=== PATIENT | female | born 1975 | race Caucasian/White ===

== ENCOUNTER 2025-01-27 19:38 | Inpatient (IN) ==
[2025-01-27] MEDS: LORazepam 1 MG TAB PO STA (20:20)
[2025-01-27 21:21] LABS: Alanine Aminotransferase 16 U/L (7-52); Albumin Globulin Ratio 1.0 (0.9-2); Alkaline Phosphatase 88 U/L (34-104); Anion Gap 8 (3-11); Bilirubin,Total 0.3 mg/dl (0.2-1.0); Blood Urea Nitrogen 12 mg/dl (6-23); Calcium 9.3 mg/dl (8.6-10.3); Carbon Dioxide 27 mmol/L (21-32); Chloride 87 mmol/L (98-107); Globulin 3.6 gm/dl (2.5-4.0); Glucose 134 mg/dl (70-99(Fasting)); Potassium 4.1 mmol/L (3.5-5.1); Sodium 122 mmol/L (136-145); Total Protein 7.3 gm/dl (6.0-8.3)
[2025-01-27 21:36] LABS: Thyroid Stimulating Hormone 3.576 uIu/ml (0.300-4.500)
[2025-01-27 21:37] LABS: Acetaminophen < 3 ug/ml (10-30); Salicylate < 3.0 mg/dl (3.0-30)
[2025-01-27 21:38] LABS: Hematocrit (blood only) 27.6 % (37.0-47.0); Hemoglobin 9.7 g/dl (12.0-16.0); Immature Granulocytes # (auto) 0.05 K/uL (0.01-0.20); Immature Granulocytes % (auto) 0.6 %; Mean Corpuscular Hemoglobin 29.1 pg (25.0-34.0); Mean Corpuscular Volume 82.9 fL (80.0-100.0); Platelet Count 645 K/uL (130-400); RDW Standard Deviation 40.4 fL (36.4-46.3); Red Blood Count 3.33 M/uL (4.20-5.40); White Blood Count 8.48 K/ul (4.8-10.8)
--- NOTE | 2025-01-27 21:55 | Emergency Department Note ---
Impression & Plan Acute hyponatremia, UTI (urinary tract infection), Acute psychosis ED Provider Note NAME: ANSHU HARPER AGE: 50 SEX: F : 1975 ARRIVES VIA: Ambulance INFORMANT: Patient, EMS, [facility] staff ED PROVIDER(S): Oleg Gaming DO CHIEF COMPLAINT: psychiatric evaluation HPI: This is a 50-year-old female with the PMHx of alcohol use disorder and psychiatric illness presenting to [facility] for further evaluation of psychiatric evaluation. Patient is accompanied by EMS who provide additional history. EMS states the patient has been delusional and paranoid. She has been screaming and crying. She has been cooperative. [facility] of staff provides further history. They report that the patient has been present in their facility for approximately 1 month. They report that she is going under alcohol rehabilitation services. She is from [place]. They note that her children are not or have been involved in motor vehicle accidents. She states that this has been worsening over the past week or so. They report this is not herself. They report significant paranoia, delusions and evidence of psychosis. They also did note some homicidal and suicidal statements. Patient is actively psychotic and further review of systems or history is difficult to obtain. She does note multiple times that her children are . She does state that she wants to . She has made numerous suicidal and homicidal statements to myself as well as nursing staff on arrival to the emergency department. ADDITIONAL HISTORY OBTAINED: Per HPI Chronic Medical/Social Conditions Affecting Care: Per HPI PAST MEDICAL HISTORY: See Below PAST SURGICAL HISTORY: See Below FAMILY HISTORY: See Below SOCIAL HISTORY: See Below HOME MEDICATIONS: See Below ALLERGIES: See Below VITALS: See Below PHYSICAL EXAMINATION: GENERAL: Alert, well developed, well nourished, no acute distress HEAD: Normocephalic, atraumatic EYES: EOM's intact, sclera anicteric, conjunctiva clear OROPHARYNX: Airway patent and mucous membranes dry LUNGS: No respiratory distress, normal respiratory rate and effort HEART: Well perfused, regular rate ABDOMEN: Abdomen non-distended SKIN: Normal color, dry EXTREMITIES: No gross deformities, no edema NEURO: Alert, oriented x3, appropriate for age, moves all four extremities, normal speech PSYCH: crying and screaming, pressured speech, flight of ideas, evidence of psychosis MEDICAL DECISION MAKING: Differential diagnoses includes but not limited to PTSD, depression, anxiety, bipolar disorder, acute psychosis, intracranial mass, vasogenic edema, electrolyte derangements, dehydration, infectious pathology, polysubstance use disorder, alcohol use disorder, polypharmacy, valproic acid toxicity In summary, this is a 50 year old female who presented with psychosis. Differential as above. Nursing notes and pertinent past medical records reviewed. Vital signs reviewed and the patient is hypertensive but otherwise afebrile and hemodynamically stable. History and presentation revealed unclear history as the patient is unknown to our medical system. Patient is from [place]. Currently undergoing rehabilitation services for alcohol use disorder. She is on multiple psychiatric medications including valproic acid. It appears the patient was recently at [facility] and ultimately discharged as she was combative and psychotic. She was found to be hyponatremic at that visit. Physical examination revealed patient is in acute psychosis. As a result of my initial evaluation, plan for psychiatric screening labs as well as Ativan while awaiting 302 petitioner to arrive in the emergency department. Plan for mental health evaluation. Diagnostics interpreted by me include cardiac monitoring as listed below: -Cardiac Monitoring: An order was placed for continuous cardiac monitoring. The monitor shows a rate of 70-90s with regular rhythm. Patient completed laboratory studies and imaging. Results independently interpreted by me are mild anemia and thrombocytosis. Acute hyponatremia with hypochloridemia present. Patient's osmolality is low as well. She does appear to have a possible UTI on urinalysis. TSH is normal. Patient has hypotonic hypoosmotic hyponatremia. Plan for further evaluation as an inpatient as the patient will not be able to be medically cleared. I did add on psychiatric screening labs which showed a negative urine toxicology as well as an ethanol. Patient had valproic acid levels drawn as well as some ammonia. The patient was managed with []. The patient was originally here on a 302 petition from her living facility. She is currently in rehabilitation services at [facility]. Patient has been acting delusional and significant paranoia. She is having hallucinations. She thinks her children are . She does have acute hyponatremia. Patient's sodium will need medical clearance and she will require admission. I did review the patient's medication list with only concerning for maybe valproic acid. A level was added to the patient's labs as well as an ammonia. Will obtain a CT head for further clearance. Hyponatremia labs added to the workup. Patient will need admitted by the hospitalist service prior to psychiatric admission. CTH independently interpreted by me reveals no evidence of ICH. No significant hydrocephalus. No major skull fractures. CTH does not demonstrate findings to suggest an etiology of the patient's symptoms or presentation, today. Ultimately, the decision was made to admit the patient for acute psychosis in the setting of hypotonic hypoosmotic hyponatremia. I discussed the case with the hospitalist service via telephone/TigerText and they are agreeable to admit the patient to their services. Based on the above, including the patient's age, coexisting illnesses, labs, imaging, and exam findings the decision to treat as an inpatient. I discussed the patient with the hospitalist team who recommended admission to their services. They received the medications, treatments, interventions indicated above and their condition remained guarded. I discussed my findings with the patient and their family and they understand and agree with the treatment plan. All patient / family questions were answered to their satisfaction. Consults/Care Managements Discussions: Per [facility] treatment provided: See above Procedures:none Critical Care: None The chart was completed utilizing [employer] Speech voice recognition software. Grammatical errors, random word insertions, pronoun errors, and incomplete sentences are an occasional consequence of this system due to software limitations, ambient noise, and hardware issues. Any formal questions or concerns about the content, text, or information contained within the body of this dictation should be directly addressed to the physician for clarification. Past Med/Surg History Problem List (Updated 01/28/25 @ 14:05 by Oleg Gaming DO) Acute psychosis (Acute) Acute hyponatremia (Acute) SIADH (syndrome of inappropriate ADH production) UTI (urinary tract infection) (Acute) Psychoses Hyponatremia Medical History (Updated 01/28/25 @ 14:05 by Oleg Gaming DO) History of alcohol abuse GERD (gastroesophageal reflux disease) Hypertension Asthma with COPD PTSD (post-traumatic stress disorder) Surgical History (Updated 01/28/25 @ 00:30 by Munira Hughes DO) History of left knee surgery Social History Smoking Status: Unknown if ever smoked Tobacco Type: Cigarettes Hx Alcohol Use: Yes Hx Substance Use: Yes Last Used Substance: Unknown Preferred Language: [place]orese Exercise Equipment Specialist Required: No Beliefs That Will Affect Care: None Feels Safe at Home: Yes Allergies Allergies Allergy/AdvReac Type Severity Reaction Status Date / Time No Known Allergies Allergy Unverified 01/28/25 00:48 Home Meds Home Medications Medication Instructions Recorded Confirmed budesonide 160 mcg-glycopyr 9 2 inh inhalation BID 01/27/25 01/27/25 mcg-formot 4.8 mcg/actuation HFA inhaler (Breztri Aerosphere) diclofenac sodium 1 % topical gel 2 g topical QID 01/27/25 01/27/25 divalproex 250 mg tablet,extended 250 mg PO BID 01/27/25 01/27/25 release 24 hr divalproex 500 mg tablet,extended 500 mg PO HS 01/27/25 01/27/25 release 24 hr ferrous sulfate 325 mg (65 mg 325 mg PO DAILY 01/27/25 01/27/25 iron) tablet (FeroSul) gabapentin 400 mg capsule 400 mg PO BID 01/27/25 01/27/25 gabapentin 600 mg tablet 600 mg PO HS 01/27/25 01/27/25 hydroxyzine HCl 50 mg tablet 50 mg PO TID 01/27/25 01/27/25 lidocaine 4 % topical patch 1 patch topical DAILY PRN Pain 01/27/25 01/27/25 losartan 25 mg tablet 25 mg PO DAILY 01/27/25 01/27/25 omeprazole 40 mg capsule,delayed 40 mg PO BID 01/27/25 01/27/25 release prazosin 1 mg capsule 1 mg PO BID 01/27/25 01/27/25 prazosin 5 mg capsule 5 mg PO HS 01/27/25 01/27/25 quetiapine 300 mg tablet (Seroquel) 150 mg PO HS 01/27/25 01/27/25 risperidone 2 mg tablet (Risperdal) 2 mg PO DAILY 01/27/25 01/27/25 sucralfate 1 gram tablet 1 g PO HS 01/27/25 01/27/25 Results & Data (ED) Vital Signs Vital Signs - 24 hr 01/27/25 19:46 01/27/25 21:06 01/27/25 22:23 Temperature 36.6 C 36.6 C Temperature Source Oral Oral Pulse Rate 78 Pulse Rate [Left Finger] 90 Pulse Rate from SpO2 Sensor Respiratory Rate 20 Respiratory Effort / Characteristics Non-Labored Spontaneous Respiratory Depth Normal Respiratory Pattern Regular Blood Pressure Blood Pressure [Left Arm] 180/92 H Blood Pressure Mean Blood Pressure Mean [Left Arm] 121 Pulse Oximetry 95 Oxygen Delivery Method Room Air Sepsis Recent Fever Within 48 Hours No Sepsis New/Unexplained Change in Mental Status No Sepsis Action Taken by Nursing No Action Required 01/27/25 22:26 01/27/25 22:54 01/27/25 23:00 Temperature 36.6 C Temperature Source Oral Pulse Rate 77 79 Pulse Rate [Left Finger] 73 Pulse Rate from SpO2 Sensor 76 79 Respiratory Rate 14 12 18 Respiratory Effort / Characteristics Non-Labored Spontaneous Respiratory Depth Normal Respiratory Pattern Regular Blood Pressure Blood Pressure [Left Arm] 197/131 H Blood Pressure Mean Blood Pressure Mean [Left Arm] 153 Pulse Oximetry 100 98 197 H Oxygen Delivery Method Room Air Sepsis Recent Fever Within 48 Hours Sepsis New/Unexplained Change in Mental Status Sepsis Action Taken by Nursing 01/27/25 23:00 01/27/25 23:00 01/27/25 23:00 Temperature Temperature Source Pulse Rate Pulse Rate [Left Finger] Pulse Rate from SpO2 Sensor Respiratory Rate Respiratory Effort / Characteristics Respiratory Depth Respiratory Pattern Blood Pressure 197/131 H 197/131 H 197/131 H Blood Pressure [Left Arm] Blood Pressure Mean 159 159 159 Blood Pressure Mean [Left Arm] Pulse Oximetry Oxygen Delivery Method Sepsis Recent Fever Within 48 Hours Sepsis New/Unexplained Change in Mental Status Sepsis Action Taken by Nursing 01/27/25 23:00 01/27/25 23:03 01/27/25 23:24 Temperature Temperature Source Pulse Rate 76 71 Pulse Rate [Left Finger] Pulse Rate from SpO2 Sensor 77 71 Respiratory Rate 16 18 Respiratory Effort / Characteristics Respiratory Depth Respiratory Pattern Blood Pressure 197/131 H Blood Pressure [Left Arm] Blood Pressure Mean 159 Blood Pressure Mean [Left Arm] Pulse Oximetry 97 95 Oxygen Delivery Method Sepsis Recent Fever Within 48 Hours Sepsis New/Unexplained Change in Mental Status Sepsis Action Taken by Nursing 01/27/25 23:36 01/27/25 23:51 Temperature Temperature Source Pulse Rate 72 75 Pulse Rate [Left Finger] Pulse Rate from SpO2 Sensor 72 76 Respiratory Rate 15 16 Respiratory Effort / Characteristics Respiratory Depth Respiratory Pattern Blood Pressure Blood Pressure [Left Arm] Blood Pressure Mean Blood Pressure Mean [Left Arm] Pulse Oximetry 96 98 Oxygen Delivery Method Sepsis Recent Fever Within 48 Hours Sepsis New/Unexplained Change in Mental Status Sepsis Action Taken by Nursing Laboratory Data 01/28/25 04:27 01/28/25 12:23 Lab Results 01/27/25 01/27/25 01/27/25 Range/Units 20:11 20:49 20:54 WBC 8.48 (4.8-10.8) K/ul RBC 3.33 L (4.20-5.40) M/uL Hgb 9.7 L (12.0-16.0) g/dl Hct 27.6 L (37.0-47.0) % MCV 82.9 (80.0-100.0) fL MCH 29.1 (25.0-34.0) pg MCHC 35.1 (32.0-36.0) g/dL RDW Std Deviation 40.4 (36.4-46.3) fL RDW Coeff of [place] 13.3 (11.5-14.5) % Plt Count 645 H (130-400) K/uL MPV 8.9 L (9.4-12.4) fL Immature Gran % (Auto) 0.6 % Neut % (Auto) 59.4 % Lymph % (Auto) 25.2 % [place] % (Auto) 8.8 % Eos % (Auto) 4.6 % Baso % (Auto) 1.4 % Neut # (Auto) 5.03 (1.40-6.50) K/uL Lymph # (Auto) 2.14 (1.20-3.40) K/uL [place] # (Auto) 0.75 H (0.11-0.59) K/uL Eos # (Auto) 0.39 (0.00-0.50) K/uL Baso # (Auto) 0.12 (0.00-0.20) K/uL Immature Gran # (Auto) 0.05 (0.01-0.20) K/uL Sodium 122 L (136-145) mmol/L Potassium 4.1 (3.5-5.1) mmol/L Chloride 87 L (98-107) mmol/L Carbon Dioxide 27 (21-32) mmol/L Anion Gap 8 (3-11) BUN 12 (6-23) mg/dl Creatinine 0.69 (0.6-1.2) mg/dl Est Cr Clr Drug Dosing Not Reportable eGFR 106.99 BUN/Creatinine Ratio 17.4 (10-20) Glucose 134 H (70-99(Fasting)) mg/dl Osmolality 259 L (280-300) mOsm/kg Calcium 9.3 (8.6-10.3) mg/dl Total Bilirubin 0.3 (0.2-1.0) mg/dl AST 17 (13-39) U/L ALT 16 (7-52) U/L Alkaline Phosphatase 88 (34-104) U/L Total Protein 7.3 (6.0-8.3) gm/dl Albumin 3.7 (3.4-5.0) gm/dl Globulin 3.6 (2.5-4.0) gm/dl Albumin/Globulin Ratio 1.0 (0.9-2) TSH 3.576 (0.300-4.500) uIu/ml Urine Color Urine Appearance (Clear) Urine pH (4.5-7.5) Ur Specific [place] (1.000-1.030) Urine Protein (Negative) Urine Glucose (UA) (Negative) Urine Ketones (Negative) Urine Blood (Negative) Urine Nitrite (Negative) Urine Bilirubin (Negative) Urine Urobilinogen (Negative) Ur Leukocyte Esterase (Negative) Urine WBC (Auto) (0-5) /hpf Urine RBC (Auto) (0-2) /hpf U Hyaline Cast (Auto) (0-2) /lpf U Epithel Cells (Auto) (0-2) /hpf Urine Bacteria (Auto) (None Seen) Urine Osmolality (500-800) mOsm/kg Ur Random Sodium mmol/L Urine Comment Salicylates < 3.0 L (3.0-30) mg/dl Urine Opiates Screen (Neg) Ur Methadone, Qual (Neg) Urine Fentanyl Screen (Neg) Acetaminophen < 3 L (10-30) ug/ml Urine Barbiturates (Neg) Ur Phencyclidine (PCP) (Neg) U Amphetamin/Meth Scrn (Neg) MDMA (Ecstasy) Screen (Neg) U Benzodiazepines Scrn (Neg) Ur Cocaine Metabolite (Neg) U Marijuana (THC) Screen (Neg) Ethyl Alcohol mg/dL < 10.0 (<10.0) mg/dl SARS-CoV-2, RNA, NAAT NEGATIVE (NEGATIVE) 01/27/25 Range/Units 22:50 WBC (4.8-10.8) K/ul RBC (4.20-5.40) M/uL Hgb (12.0-16.0) g/dl Hct (37.0-47.0) % MCV (80.0-100.0) fL MCH (25.0-34.0) pg MCHC (32.0-36.0) g/dL RDW Std Deviation (36.4-46.3) fL RDW Coeff of [place] (11.5-14.5) % Plt Count (130-400) K/uL MPV (9.4-12.4) fL Immature Gran % (Auto) % Neut % (Auto) % Lymph % (Auto) % [place] % (Auto) % Eos % (Auto) % Baso % (Auto) % Neut # (Auto) (1.40-6.50) K/uL Lymph # (Auto) (1.20-3.40) K/uL [place] # (Auto) (0.11-0.59) K/uL Eos # (Auto) (0.00-0.50) K/uL Baso # (Auto) (0.00-0.20) K/uL Immature Gran # (Auto) (0.01-0.20) K/uL Sodium (136-145) mmol/L Potassium (3.5-5.1) mmol/L Chloride (98-107) mmol/L Carbon Dioxide (21-32) mmol/L Anion Gap (3-11) BUN (6-23) mg/dl Creatinine (0.6-1.2) mg/dl Est Cr Clr Drug Dosing eGFR BUN/Creatinine Ratio (10-20) Glucose (70-99(Fasting)) mg/dl Osmolality (280-300) mOsm/kg Calcium (8.6-10.3) mg/dl Total Bilirubin (0.2-1.0) mg/dl AST (13-39) U/L ALT (7-52) U/L Alkaline Phosphatase (34-104) U/L Total Protein (6.0-8.3) gm/dl Albumin (3.4-5.0) gm/dl Globulin (2.5-4.0) gm/dl Albumin/Globulin Ratio (0.9-2) TSH (0.300-4.500) uIu/ml Urine Color Yellow Urine Appearance Cloudy A (Clear) Urine pH 7.0 (4.5-7.5) Ur Specific [place] 1.014 (1.000-1.030) Urine Protein Negative (Negative) Urine Glucose (UA) Negative (Negative) Urine Ketones Negative (Negative) Urine Blood Negative (Negative) Urine Nitrite Positive A (Negative) Urine Bilirubin Negative (Negative) Urine Urobilinogen Negative (Negative) Ur Leukocyte Esterase 2+ H (Negative) Urine WBC (Auto) 21-50 H (0-5) /hpf Urine RBC (Auto) 0-2 (0-2) /hpf U Hyaline Cast (Auto) 0-2 (0-2) /lpf U Epithel Cells (Auto) 3-5 H (0-2) /hpf Urine Bacteria (Auto) 4+ H (None Seen) Urine Osmolality 382 L (500-800) mOsm/kg Ur Random Sodium 72 mmol/L Urine Comment Salicylates (3.0-30) mg/dl Urine Opiates Screen Neg (Neg) Ur Methadone, Qual Neg (Neg) Urine Fentanyl Screen Neg (Neg) Acetaminophen (10-30) ug/ml Urine Barbiturates Neg (Neg) Ur Phencyclidine (PCP) Neg (Neg) U Amphetamin/Meth Scrn Neg (Neg) MDMA (Ecstasy) Screen Neg (Neg) U Benzodiazepines Scrn Neg (Neg) Ur Cocaine Metabolite Neg (Neg) U Marijuana (THC) Screen Neg (Neg) Ethyl Alcohol mg/dL (<10.0) mg/dl SARS-CoV-2, RNA, NAAT (NEGATIVE) Administered Medications Diclofenac Sodium (Diclofenac Sod 1% Gel 100 Gm Tube) 2 gm EXT QID MANJIT; Protocol Stop: 02/27/25 08:59 Last Admin: 01/28/25 10:22 Dose: Not Given Documented By: campbell Divalproex Sodium (Divalproex Extended Release 250 Mg Tabcr) 250 mg PO BID [facility] Stop: 02/27/25 08:59 Last Admin: 01/28/25 09:19 Dose: 250 mg Documented By: campbell Fluticasone Furoate (For Breztri~Fluticasone Furoate 200mcg 14 Puffs/Inhaler) 1 puffs INH DAILY [facility] Stop: 02/27/25 08:59 Last Admin: 01/28/25 09:20 Dose: 1 puffs Documented By: campbell Gabapentin (Gabapentin 400 Mg Cap) 400 mg PO BID@0900,1400 [facility] Stop: 02/27/25 08:59 Last Admin: 01/28/25 09:19 Dose: 400 mg Documented By: campbell Hydroxyzine HCl (Hydroxyzine Hcl 25 Mg Tab) 50 mg PO TID MANJIT Stop: 02/27/25 08:59 Last Admin: 01/28/25 09:18 Dose: 50 mg Documented By: campbell Ceftriaxone Sodium (Rocephin) 2,000 mg in 50 mls @ 100 mls/hr IV Q24H MANJIT Stop: 02/02/25 08:59 Last Infusion: 01/28/25 09:28 Dose: Infused Documented By: campbell Admin: 01/28/25 08:45 Dose: 100 mls/hr Documented By: campbell Losartan Potassium (Losartan Potassium 25 Mg Tab) 25 mg PO DAILY [facility]JIT Stop: 02/27/25 08:59 Last Admin: 01/28/25 09:18 Dose: 25 mg Documented By: campbell Pantoprazole Sodium (Pantoprazole 40 Mg Tab) 40 mg PO BID [facility]JIT Stop: 02/27/25 08:59 Last Admin: 01/28/25 09:18 Dose: 40 mg Documented By: campbell Prazosin HCl (Prazosin Hcl 1 Mg Cap) 1 mg PO BID@0900,1400 [facility] Stop: 02/27/25 08:59 Last Admin: 01/28/25 09:19 Dose: 1 mg Documented By: campbell Risperidone (Risperidone 2 Mg Tablet) 2 mg PO DAILY [facility] Stop: 02/27/25 08:59 Last Admin: 01/28/25 09:19 Dose: 2 mg Documented By: campbell Umeclidinium/Vilanterol (For Breztri~Umeclidinium/Vilanterol 62.5/25mcg 7 Puffs/Inhaler) 1 puffs INH DAILY [facility] Stop: 02/27/25 08:59 Last Admin: 01/28/25 09:20 Dose: 1 puffs Documented By: campbell Discontinued Medications Sodium Chloride (Nss) 500 mls @ 999 mls/hr IV .Q31M ONE Stop: 01/27/25 22:26 Last Infusion: 01/27/25 23:07 Dose: Infused Documented By: Admin: 01/27/25 22:30 Dose: 999 mls/hr Documented By: EVA Lorazepam (Lorazepam 1 Mg Tab) 2 mg PO NOW STA Stop: 01/27/25 20:12 Last Admin: 01/27/25 20:20 Dose: 2 mg Documented By: EVA Lorazepam (Lorazepam 1 Mg Tab) 2 mg PO NOW STA Stop: 01/28/25 03:30 Last Admin: 01/28/25 04:11 Dose: 2 mg Documented By: CASPER Discharge Plan Visit Data Chief Complaint: Mental Health Evaluation Stated Complaint: MENTAL HEALTH, HALLUCINATIONS ED Provider: Oleg Gaming Discharge Problem: Acute hyponatremia, UTI (urinary tract infection), Acute psychosis Patient Disposition: Admitted As Inpatient Condition: Serious Discharge Instructions Interventions: ED Discharge Assessment Last Done: 01/28/25 00:45
[2025-01-27] MEDS: SODIUM CHLORIDE 0.9% 500 ML IV ONE (22:30)
[2025-01-27 23:13] LABS: Appearance Urine Cloudy (Clear); Bacteria Urine Automated 4+ (None Seen); Cast Urine Automated 0-2 /lpf (0-2); Glucose Urine UA Negative (Negative); RBC Urine Automated 0-2 /hpf (0-2); WBC Urine Automated 21-50 /hpf (0-5)
[2025-01-27 23:34] LABS: Amphetamines+Metham, Urine Neg (Neg); MDMA (Ecstacy), Urine Neg (Neg); Marijuana, Urine Neg (Neg)
--- NOTE | 2025-01-27 23:35 | History & Physical Report ---
Date of Service January 27, 2025 Assessment & Plan (1) Hyponatremia: (2) Psychoses: Plan 50yo female presenting from [facility] with report of agitated behavior, responding to internal stimuli, paranoia and homicidal statements. #Hyponatremia - Be=639. Possibly contributing to patient's confusion -Admit to medical -Monitor Na q 8 hours -Free water restriction #Agitation/Psychosis/Paranoia/Homicidal Statements -Maintain 1:1 observation -Suicide precautions -Continue home medications -Continue Divalproex, level pending -Continue Gabapentin -Continue Hydroxyzine -Continue Prazosin -Continue Seroquel -Continue Risperdal -Psychiatry consultation appreciated. Uncertain which of these medications are new and if they can be contributing to her hyponatremia Patient was made aware of the Psychiatry consultation, however, was drowsy at the time of the conversation #GERD -Continue Omeprazole and Sucralfate #Hypertension - markedly elevated blood pressures -Continue Losartan -Clonidine 0.1mg po q 6 hours as needed for blood pressure > 180/110 History of Present Illness Chief Complaint: 302 admission Hyponatremia Primary Care Provider: Bry Mendoza is a 50yo female presenting from [facility] as a 302 admission. Patient was recently given Ativan and is somnolent during exam. Is able to answer questions but does not engage fully with providing history or exam. Patient has been at [facility] for the last month for treatment of alcohol use disorder. She was to be discharged today from [facility]. Patient was making comments to [facility] staff that "she was going to kill everyone and rip their heads off". She was noted to have auditory and visual hallucinations. She thinks that her son was attacked in the [place] earlier and is now either or is in the hospital. During my encounter patient with no complaints except a mild headache. In the ER she was initially agitated on arrival but calmed down after PO Ativan ER Course: Ativan 2mg PO NSS x 500mL Home Medications Medication Instructions Recorded Confirmed Type budesonide 160 mcg-glycopyr 9 2 inh inhalation BID 01/27/25 01/27/25 History mcg-formot 4.8 mcg/actuation HFA inhaler (Breztri Aerosphere) diclofenac sodium 1 % topical gel 2 g topical QID 01/27/25 01/27/25 History divalproex 250 mg tablet,extended 250 mg PO BID 01/27/25 01/27/25 History release 24 hr divalproex 500 mg tablet,extended 500 mg PO HS 01/27/25 01/27/25 History release 24 hr ferrous sulfate 325 mg (65 mg 325 mg PO DAILY 01/27/25 01/27/25 History iron) tablet (FeroSul) gabapentin 400 mg capsule 400 mg PO BID 01/27/25 01/27/25 History gabapentin 600 mg tablet 600 mg PO HS 01/27/25 01/27/25 History hydroxyzine HCl 50 mg tablet 50 mg PO TID 01/27/25 01/27/25 History lidocaine 4 % topical patch 1 patch topical DAILY PRN Pain 01/27/25 01/27/25 History losartan 25 mg tablet 25 mg PO DAILY 01/27/25 01/27/25 History omeprazole 40 mg capsule,delayed 40 mg PO BID 01/27/25 01/27/25 History release prazosin 1 mg capsule 1 mg PO BID 01/27/25 01/27/25 History prazosin 5 mg capsule 5 mg PO HS 01/27/25 01/27/25 History quetiapine 300 mg tablet (Seroquel) 150 mg PO HS 01/27/25 01/27/25 History risperidone 2 mg tablet (Risperdal) 2 mg PO DAILY 01/27/25 01/27/25 History sucralfate 1 gram tablet 1 g PO HS 01/27/25 01/27/25 History Past Med/Surg History Problem List (Updated 01/28/25 @ 00:32 by Munira Hughes DO) Psychoses Hyponatremia Medical History (Updated 01/28/25 @ 00:32 by Munira Hughes DO) History of alcohol abuse GERD (gastroesophageal reflux disease) Hypertension Asthma with COPD PTSD (post-traumatic stress disorder) Surgical History (Updated 01/28/25 @ 00:30 by Munira Hughes DO) History of left knee surgery Social History Smoking Status: Current every day smoker Tobacco Type: Cigarettes Preferred Language: Icelandic Feels Safe at Home: Yes Review of Systems Review of Systems: All systems reviewed & are unremarkable except as noted in HPI & below Physical Exam Physical Exam: General: patient somnolent, NAD Skin: warm, dry, intact, no rashes or lesions HEENT: NC/AT, PERRL, EOMI, anicteric sclera, conjunctiva without injection, ex ternal ear normal to inspection and nontender, nares patent, moist mucus membranes, dentition intact, no oropharyngeal lesions, neck supple, trachea midline, no LAD, no thyromegaly, no JVD Heart: +S1/S2, regular, no m/r/g Lungs: equal air entry bilaterally, no rales/rhonchi/wheezes Abd: +BS, soft, NT/ND, no masses/organomegaly/ascites Ext: warm, 2+ pulses in UE/LE bilaterally, no clubbing/cyanosis or edema Neuro: nonfocal, patient somnolent, speech intact, no facial droop, moving all extremities on command with equal strength 5/5 Results & Data Results & Data Vital Signs (Past 12 Hours) Vital Signs Temp Pulse Pulse Resp BP Pulse Ox O2 Del Method 01/27/25 23:00 36.6 C 73 18 197/131 H 197 H Room Air 01/27/25 22:23 78 01/27/25 21:06 36.6 C 90 20 180/92 H 95 Room Air 01/27/25 19:46 36.6 C Laboratory Results Laboratory Results WBC 8.48 K/ul (4.8-10.8) 01/27/25 20:49 RBC 3.33 M/uL (4.20-5.40) L 01/27/25 20:49 Hgb 9.7 g/dl (12.0-16.0) L 01/27/25 20:49 Hct 27.6 % (37.0-47.0) L 01/27/25 20:49 MCV 82.9 fL (80.0-100.0) 01/27/25 20:49 MCH 29.1 pg (25.0-34.0) 01/27/25 20:49 MCHC 35.1 g/dL (32.0-36.0) 01/27/25 20:49 RDW Std Deviation 40.4 fL (36.4-46.3) 01/27/25 20:49 RDW Coeff of Galilea 13.3 % (11.5-14.5) 01/27/25 20:49 Plt Count 645 K/uL (130-400) H 01/27/25 20:49 MPV 8.9 fL (9.4-12.4) L 01/27/25 20:49 Immature Gran % (Auto) 0.6 % 01/27/25 20:49 Neut % (Auto) 59.4 % 01/27/25 20:49 Lymph % (Auto) 25.2 % 01/27/25 20:49 Borden % (Auto) 8.8 % 01/27/25 20:49 Eos % (Auto) 4.6 % 01/27/25 20:49 Baso % (Auto) 1.4 % 01/27/25 20:49 Neut # (Auto) 5.03 K/uL (1.40-6.50) 01/27/25 20:49 Lymph # (Auto) 2.14 K/uL (1.20-3.40) 01/27/25 20:49 Borden # (Auto) 0.75 K/uL (0.11-0.59) H 01/27/25 20:49 Eos # (Auto) 0.39 K/uL (0.00-0.50) 01/27/25 20:49 Baso # (Auto) 0.12 K/uL (0.00-0.20) 01/27/25 20:49 Immature Gran # (Auto) 0.05 K/uL (0.01-0.20) 01/27/25 20:49 Sodium 122 mmol/L (136-145) L 01/27/25 20:49 Potassium 4.1 mmol/L (3.5-5.1) 01/27/25 20:49 Chloride 87 mmol/L (98-107) L 01/27/25 20:49 Carbon Dioxide 27 mmol/L (21-32) 01/27/25 20:49 Anion Gap 8 (3-11) 01/27/25 20:49 BUN 12 mg/dl (6-23) 01/27/25 20:49 Creatinine 0.69 mg/dl (0.6-1.2) 01/27/25 20:49 Est Cr Clr Drug Dosing Not Reportable 01/27/25 20:49 eGFR 106.99 01/27/25 20:49 BUN/Creatinine Ratio 17.4 (10-20) 01/27/25 20:49 Glucose 134 mg/dl (70-99(Fasting)) H 01/27/25 20:49 Osmolality 259 mOsm/kg (280-300) L 01/27/25 20:11 Calcium 9.3 mg/dl (8.6-10.3) 01/27/25 20:49 Total Bilirubin 0.3 mg/dl (0.2-1.0) 01/27/25 20:49 AST 17 U/L (13-39) 01/27/25 20:49 ALT 16 U/L (7-52) 01/27/25 20:49 Alkaline Phosphatase 88 U/L (34-104) 01/27/25 20:49 Total Protein 7.3 gm/dl (6.0-8.3) 01/27/25 20: Albumin 3.7 gm/dl (3.4-5.0) 01/27/25 20:49 Globulin 3.6 gm/dl (2.5-4.0) 01/27/25 20: Albumin/Globulin Ratio 1.0 (0.9-2) 01/27/25 20:49 TSH 3.576 uIu/ml (0.300-4.500) 01/27/25 20:49 Urine Color Yellow 01/27/25 22:50 Urine Appearance Cloudy (Clear) A 01/27/25 22:50 Urine pH 7.0 (4.5-7.5) 01/27/25 22:50 Ur Specific Bunn 1.014 (1.000-1.030) 01/27/25 22:50 Urine Protein Negative (Negative) 01/27/25 22:50 Urine Glucose (UA) Negative (Negative) 01/27/25 22:50 Urine Ketones Negative (Negative) 01/27/25 22:50 Urine Blood Negative (Negative) 01/27/25 22:50 Urine Nitrite Positive (Negative) A 01/27/25 22:50 Urine Bilirubin Negative (Negative) 01/27/25 22:50 Urine Urobilinogen Negative (Negative) 01/27/25 22:50 Ur Leukocyte Esterase 2+ (Negative) H 01/27/25 22:50 Urine WBC (Auto) 21-50 /hpf (0-5) H 01/27/25 22:50 Urine RBC (Auto) 0-2 /hpf (0-2) 01/27/25 22:50 U Hyaline Cast (Auto) 0-2 /lpf (0-2) 01/27/25 22:50 U Epithel Cells (Auto) 3-5 /hpf (0-2) H 01/27/25 22:50 Urine Bacteria (Auto) 4+ (None Seen) H 01/27/25 22:50 Urine Osmolality 382 mOsm/kg (500-800) L 01/27/25 22:50 Ur Random Sodium 72 mmol/L 01/27/25 22:50 Urine Comment 01/27/25 22:50 Salicylates < 3.0 mg/dl (3.0-30) L 01/27/25 20:49 Urine Opiates Screen Neg (Neg) 01/27/25 22:50 Ur Methadone, Qual Neg (Neg) 01/27/25 22:50 Urine Fentanyl Screen Neg (Neg) 01/27/25 22:50 Acetaminophen < 3 ug/ml (10-30) L 01/27/25 20:49 Urine Barbiturates Neg (Neg) 01/27/25 22:50 Ur Phencyclidine (PCP) Neg (Neg) 01/27/25 22:50 U Amphetamin/Meth Scrn Neg (Neg) 01/27/25 22:50 MDMA (Ecstasy) Screen Neg (Neg) 01/27/25 22:50 U Benzodiazepines Scrn Neg (Neg) 01/27/25 22:50 Ur Cocaine Metabolite Neg (Neg) 01/27/25 22:50 U Marijuana (THC) Screen Neg (Neg) 01/27/25 22:50 Ethyl Alcohol mg/dL < 10.0 mg/dl (<10.0) 01/27/25 20:49 SARS-CoV-2, RNA, NAAT NEGATIVE (NEGATIVE) 01/27/25 20:54 PG Care Time/CCT Total # of Minutes Spent Total Time Spent with Patient: Total time spent is greater than 50% in coordination of care (as documented) at patient's floor/unit and/or counseling patient: Coding Level of Care Code 90458 INT INP/OBS CARE 3/75MIN Diagnoses Hyponatremia E87.1 Psychoses F29
--- NOTE | 2025-01-28 01:39 | CT Scan Report ---
Exam(s): CT HEAD Without Contrast EXAM: CT Head Without Intravenous Contrast CLINICAL HISTORY: AMS, hyponatremia, consider malignancy. TECHNIQUE: Axial computed tomography images of the head/brain without intravenous contrast. CTDI is 37.61 mGy and DLP is 625.8 mGy-cm. Automated exposure control was utilized for the study. A dose lowering technique was utilized adhering to the principles of ALARA. COMPARISON: No relevant prior studies available. FINDINGS: Brain: Unremarkable. No hemorrhage. No significant white matter disease. No edema. Ventricles: Unremarkable. No ventriculomegaly. Bones/joints: No intracranial hemorrhage. No significant mass effect. No evidence to suggest an underlying mass lesion, accounting for limitations. No acute fracture. Soft tissues: Unremarkable. Sinuses: Unremarkable as visualized. No acute sinusitis. Mastoid air cells: Unremarkable as visualized. No mastoid effusion. IMPRESSION: No acute intracranial process identified. Electronically signed by: Jeronimo Segura MD 01/28/25 01:38 AM
[2025-01-28] MEDS: LORazepam 1 MG TAB PO STA (04:11)
[2025-01-28 04:42] LABS: Hematocrit (blood only) 27.4 % (37.0-47.0); Hemoglobin 9.8 g/dl (12.0-16.0); Mean Corpuscular Hemoglobin 29.3 pg (25.0-34.0); Mean Corpuscular Volume 82.0 fL (80.0-100.0); Platelet Count 605 K/uL (130-400); RDW Standard Deviation 40.3 fL (36.4-46.3); Red Blood Count 3.34 M/uL (4.20-5.40); White Blood Count 7.44 K/ul (4.8-10.8)
[2025-01-28 04:58] LABS: Anion Gap 8 (3-11); Blood Urea Nitrogen 12 mg/dl (6-23); Calcium 8.9 mg/dl (8.6-10.3); Carbon Dioxide 27 mmol/L (21-32); Chloride 91 mmol/L (98-107); Glucose 95 mg/dl (70-99(Fasting)); Potassium 4.1 mmol/L (3.5-5.1); Sodium 126 mmol/L (136-145)
[2025-01-28] MEDS: cefTRIAXone SODIUM 2,000 MG/50 ML BAG IV SCH (08:45)
[2025-01-28] MEDS ORDERED: NON-FORMULARY MEDICATION (Budesonide-Glycopyr-Formoterol [Breztri Aerosphere] 160-9-4.8 mc INH SCH (09:00)
[2025-01-28] MEDS: LOSARTAN POTASSIUM 25 MG TAB PO SCH (09:18)
[2025-01-28] MEDS: PRAZOSIN HCL 1 MG CAP PO SCH ×2 (09:19→20:23)
[2025-01-28] MEDS: GABAPENTIN 400 MG CAP PO SCH (09:19)
[2025-01-28] MEDS: DIVALPROEX EXTENDED RELEASE 250 MG TABCR PO SCH (09:19)
[2025-01-28] MEDS: For Breztri~FLUTICASONE FUROATE 200MCG 14 PUFFS/INHALER INH SCH (09:20)
[2025-01-28] MEDS: For Breztri~UMECLIDINIUM/VILANTEROL 62.5/25MCG 7 PUFFS/INHALER INH SCH (09:20)
--- NOTE | 2025-01-28 09:36 | Hospitalist Progress Note ---
Date of Service January 28, 2025 Assessment & Plan (1) Hyponatremia: (2) Psychoses: (3) UTI (urinary tract infection): (4) SIADH (syndrome of inappropriate ADH production): Plan 50yo female presenting from [facility] with report of agitated behavior, responding to internal stimuli, paranoia and homicidal statements. #Hyponatremia - Fv=918 -> 126. Suspect SIADH with UTI and multiple psychiatric medications -Free water restriction, as long as sodium restricted this is all that is required -Will consider salt tabs pending rate of sodium improvement #UTI Dysuria Ceftriaxone pending urine culture #Agitation/Psychosis/Paranoia/Homicidal Statements -Maintain 1:1 observation -Suicide precautions -Continue home medications -Continue Divalproex, level pending -Continue Gabapentin -Continue Hydroxyzine -Continue Prazosin -Continue Seroquel -Continue Risperdal -Awaiting psychiatry consult #GERD -Continue Omeprazole and Sucralfate #Hypertension -Continue Losartan VTE Prophylaxis - low risk, encourage ambulation Disposition - continue on med/surg Admission and Anticipated Discharge Date Admission Date: January 27, 2025 Subjective Patient pleasant when entering the room. She tells me she is here from [facility] because when she went to leave and get on a bus her son was killed as he jumped over a ajay. She reports lots of medication changes at [facility] and feels she was doing better on depakote. She reports dysuria for the last month but reports she was treated with marcobid at some point but unsure when. No current auditory or visual hallucinations noted. She has chronic back pain but nothing new. She denies excessive water intake. Physical Exam Constitutional: WD/WN, vitals as above Respiratory: normal respiratory effort, lungs clear to auscultation Cardiovascular: RRR, no murmur, no edema Gastrointestinal (Abdomen): normal bowel sounds, soft, nontender, no hepatosplenomegaly Results & Data Results & Data Vital Signs (Past 12 Hours) Vital Signs Temp Pulse Pulse Resp BP BP Pulse Ox 01/28/25 09:17 90 16 160/98 H 97 01/28/25 06:00 82 16 152/90 H 95 01/28/25 05:00 80 15 171/99 H 94 01/28/25 04:00 76 17 178/103 H 95 01/28/25 03:00 80 13 187/111 H 95 01/28/25 02:21 80 12 01/28/25 02:21 78 01/28/25 02:12 77 12 96 01/28/25 02:00 150/86 H 01/28/25 01:48 74 20 01/28/25 01:24 89 16 01/28/25 01:18 82 12 01/28/25 01:09 76 10 L 91 01/28/25 01:00 136/79 01/28/25 00:45 75 18 96 01/28/25 00:42 75 16 93 01/28/25 00:39 78 15 95 01/28/25 00:27 81 18 93 01/28/25 00:00 76 14 96 01/27/25 23:51 75 16 98 01/27/25 23:36 72 15 96 01/27/25 23:24 71 18 95 01/27/25 23:03 76 16 97 01/27/25 23:00 197/131 H 01/27/25 23:00 197/131 H 01/27/25 23:00 197/131 H 01/27/25 23:00 197/131 H 01/27/25 23:00 36.6 C 73 18 197/131 H 197 H 01/27/25 22:54 79 12 98 01/27/25 22:26 77 14 100 01/27/25 22:23 78 O2 Del Method 01/28/25 09:17 Room Air 01/28/25 06:00 Room Air 01/28/25 05:00 Room Air 01/28/25 04:00 Room Air 01/28/25 03:00 Room Air 01/28/25 02:21 01/28/25 02:21 01/28/25 02:12 01/28/25 02:00 01/28/25 01:48 01/28/25 01:24 01/28/25 01:18 01/28/25 01:09 01/28/25 01:00 01/28/25 00:45 01/28/25 00:42 01/28/25 00:39 01/28/25 00:27 01/28/25 00:00 01/27/25 23:51 01/27/25 23:36 01/27/25 23:24 01/27/25 23:03 01/27/25 23:00 01/27/25 23:00 01/27/25 23:00 01/27/25 23:00 01/27/25 23:00 Room Air 01/27/25 22:54 01/27/25 22:26 01/27/25 22:23 PG Care Time/CCT Total # of Minutes Spent Total Time Spent with Patient: Total time spent is greater than 50% in coordination of care (as documented) at patient's floor/unit and/or counseling patient: Coding Level of Care Code 92962 SUB INP/OBS CARE 2/35MIN Diagnoses Hyponatremia E87.1 Psychoses F29 UTI (urinary tract infection) N39.0 SIADH (syndrome of inappropriate ADH production) E22.2
[2025-01-28] MEDS: DICLOFENAC SOD 1% GEL 100 GM TUBE EXT SCH (10:22)
--- NOTE | 2025-01-28 12:40 | Psychiatric Consultation ---
Date of Consultation January 28, 2025 Impression / Recommendations Impression Diagnostically consistent with unspecified psychosis with broad differential including primary psychotic disorder vs substance-induced or withdrawal (UDS negative but possible she took something synthetic that would not appear on UDS or was withdrawing from use of something earlier in the week) vs secondary to underlying medical cause (presented with hyponatremia and UTI but fully oriented earlier in the day and also has been on multiple psychiatric medications including two antipsychotics which suggests a history of some type of primary psychiatric disorder). Assessment today limited due to her sedation and lack of family to provide collateral. But given recent hyponatremia will consider transition to antipsychotic monotherapy if psychosis persists. For now high suspicion for substance-induced so will not make any acute medication changes especially as I was unable to discuss her history of prior psychiatric medications nor willingness to make any medication changes. Will continue to monitor and once medically stable will begin psychiatric inpatient bed search for diagnostic clarification, medication management, safety and stabilization. The patient remains hospitalized on a completed 302 involuntary commitment, which if not extended, will on 02/01/2025 @2006 . This patient must remain on safety precautions with a 1-on-1 and is unable to leave the hospital AMA. Overall, I spent a total of 45 minutes with this case including review of chart records, review of labwork, review of EKG QTc, direct evaluation of the patient at bedside, counseling the patient, discussion of the patient with the Nurse and with the hospitalist provider, discussion with the psychiatric liason during clinical rounds and documentation in the electronic health record. (1) Acute psychosis: (2) UTI (urinary tract infection): Plan -Continue 1-on-1 given 302 commitment , she may not leave AMA -Continue current psychiatric medications as ordered -Will begin psychiatric bed search once medically stable (will need COVID test at that time) -For behavioral emergency: haldol 5mg IM BID prn and ativan 2mg IM BID prn Psych History Identifying Data Richelle Mendoza is a 50yo woman from [facility] presenting from [facility] with history of PTSD, alcohol use disorder and report of agitated behavior, responding to internal stimuli, paranoia and homicidal statements escalating in recent days. Psychiatry consulted for psychosis and 302. Chief Complaint sleeping History of Present Illness Richelle presented from a local substance use residential treatment program where she has been for approximately one month for alcohol use disorder. Reportedly she developed hallucinations in the this week and then yesterday became acutely agitated resulting in presentation to [facility] ED. While in the ED she was shouting, running down the hallways and believed that her son had and that she was seeing bodies everywhere. Apparently had also been making statements of wanting to harm others at [facility]. A 302 commitment was completed due to her acute psychosis, HI and attempts to elope from the hospital. Today she was sleeping and would not awake to multiple attempts mid-day. Her sodium was low on admission, improving today. Has reportedly been taking the following psychiatric medications at [facility]: -Depakote -Gabapentin -Prazosin -Seroquel -Risperidone Allergies Allergy/AdvReac Type Severity Reaction Status Date / Time No Known Allergies Allergy Unverified 01/28/25 00:48 Home Medications Medication Instructions Recorded Confirmed Type budesonide 160 mcg-glycopyr 9 2 inh inhalation BID 01/27/25 01/27/25 History mcg-formot 4.8 mcg/actuation HFA inhaler ([employer]) diclofenac sodium 1 % topical gel 2 g topical QID 01/27/25 01/27/25 History divalproex 250 mg tablet,extended 250 mg PO BID 01/27/25 01/27/25 History release 24 hr divalproex 500 mg tablet,extended 500 mg PO HS 01/27/25 01/27/25 History release 24 hr ferrous sulfate 325 mg (65 mg 325 mg PO DAILY 01/27/25 01/27/25 History iron) tablet (FeroSul) gabapentin 400 mg capsule 400 mg PO BID 01/27/25 01/27/25 History gabapentin 600 mg tablet 600 mg PO HS 01/27/25 01/27/25 History hydroxyzine HCl 50 mg tablet 50 mg PO TID 01/27/25 01/27/25 History lidocaine 4 % topical patch 1 patch topical DAILY PRN Pain 01/27/25 01/27/25 History losartan 25 mg tablet 25 mg PO DAILY 01/27/25 01/27/25 History omeprazole 40 mg capsule,delayed 40 mg PO BID 01/27/25 01/27/25 History release prazosin 1 mg capsule 1 mg PO BID 01/27/25 01/27/25 History prazosin 5 mg capsule 5 mg PO HS 01/27/25 01/27/25 History quetiapine 300 mg tablet (Seroquel) 150 mg PO HS 01/27/25 01/27/25 History risperidone 2 mg tablet (Risperdal) 2 mg PO DAILY 01/27/25 01/27/25 History sucralfate 1 gram tablet 1 g PO HS 01/27/25 01/27/25 History Patient History Medical History History of alcohol abuse GERD (gastroesophageal reflux disease) Hypertension Asthma with COPD PTSD (post-traumatic stress disorder) Surgical History History of left knee surgery Social History Smoking Status: Unknown if ever smoked Tobacco Type: Cigarettes Hx Alcohol Use: Yes Hx Substance Use: Yes Last Used Substance: Unknown Preferred Language: Gu[place]an [place] Required: No Beliefs That Will Affect Care: None Feels Safe at Home: Yes Physical Exam Vital Signs (Past 24 Hours): Last Vital Signs Temp 36.6 C 01/27/25 23:00 Pulse 89 01/28/25 12:03 Resp 20 01/28/25 12:03 BP 127/85 01/28/25 12:03 Pulse Ox 94 01/28/25 12:03 O2 Del Method Room Air 01/28/25 12:03 Results & Data (PSY) Medications Administered Diclofenac Sodium (Diclofenac Sod 1% Gel 100 Gm Tube) 2 gm EXT QID MANJIT; P rotocol Stop: 02/27/25 08:59 Last Admin: 01/28/25 10:22 Dose: Not Given Documented By: campbell Divalproex Sodium (Divalproex Extended Release 250 Mg Tabcr) 250 mg PO BID MANJIT Stop: 02/27/25 08:59 Last Admin: 01/28/25 09:19 Dose: 250 mg Documented By: campbell Fluticasone Furoate (For Breztri~Fluticasone Furoate 200mcg 14 Puffs/Inhaler) 1 puffs INH DAILY MANJIT Stop: 02/27/25 08:59 Last Admin: 01/28/25 09:20 Dose: 1 puffs Documented By: campbell Gabapentin (Gabapentin 400 Mg Cap) 400 mg PO BID@0900,1400 MANJIT Stop: 02/27/25 08:59 Last Admin: 01/28/25 09:19 Dose: 400 mg Documented By: cad Hydroxyzine HCl (Hydroxyzine Hcl 25 Mg Tab) 50 mg PO TID MANJIT Stop: 02/27/25 08:59 Last Admin: 01/28/25 09:18 Dose: 50 mg Documented By: cad Ceftriaxone Sodium (Rocephin) 2,000 mg in 50 mls @ 100 mls/hr IV Q24H MANJIT Stop: 02/02/25 08:59 Last Infusion: 01/28/25 09:28 Dose: Infused Documented By: cad Admin: 01/28/25 08:45 Dose: 100 mls/hr Documented By: cad Losartan Potassium (Losartan Potassium 25 Mg Tab) 25 mg PO DAILY MANJIT Stop: 02/27/25 08:59 Last Admin: 01/28/25 09:18 Dose: 25 mg Documented By: campbell Pantoprazole Sodium (Pantoprazole 40 Mg Tab) 40 mg PO BID MANJIT Stop: 02/27/25 08:59 Last Admin: 01/28/25 09:18 Dose: 40 mg Documented By: campbell Prazosin HCl (Prazosin Hcl 1 Mg Cap) 1 mg PO BID@0900,1400 MANJIT Stop: 02/27/25 08:59 Last Admin: 01/28/25 09:19 Dose: 1 mg Documented By: campbell Risperidone (Risperidone 2 Mg Tablet) 2 mg PO DAILY MANJIT Stop: 02/27/25 08:59 Last Admin: 01/28/25 09:19 Dose: 2 mg Documented By: campbell Umeclidinium/Vilanterol (For Breztri~Umeclidinium/Vilanterol 62.5/25mcg 7 Puffs/Inhaler) 1 puffs INH DAILY MANJIT Stop: 02/27/25 08:59 Last Admin: 01/28/25 09:20 Dose: 1 puffs Documented By: campbell Coding Level of Care Code 96544 IN/OBS CONSULT LVL 3,45M Diagnoses Acute psychosis F23 UTI (urinary tract infection) N39.0
[2025-01-28 13:09] LABS: Anion Gap 8 (3-11); Blood Urea Nitrogen 14 mg/dl (6-23); Calcium 9.3 mg/dl (8.6-10.3); Carbon Dioxide 27 mmol/L (21-32); Chloride 91 mmol/L (98-107); Glucose 104 mg/dl (70-99(Fasting)); Potassium 4.6 mmol/L (3.5-5.1); Sodium 126 mmol/L (136-145)
[2025-01-28] MEDS: DIVALPROEX EXTENDED RELEASE 500 MG TAB PO SCH (20:22)
[2025-01-28] MEDS: GABAPENTIN 600 MG TAB PO SCH (20:23)
[2025-01-28] MEDS: SUCRALFATE 1 GM TAB PO SCH (20:23)
[2025-01-28] MEDS: SODIUM CHLORIDE 1 GM TABLET PO SCH (20:54)
[2025-01-28] MEDS: NICOTINE POLACRILEX 2 MG GUM MT PRN (21:00)
[2025-01-28] MEDS: REMOVE LIDODERM PATCH SCH (23:07)
[2025-01-29 05:18] LABS: Anion Gap 7 (3-11); Blood Urea Nitrogen 17 mg/dl (6-23); Calcium 9.0 mg/dl (8.6-10.3); Carbon Dioxide 27 mmol/L (21-32); Chloride 94 mmol/L (98-107); Glucose 109 mg/dl (70-99(Fasting)); Potassium 4.3 mmol/L (3.5-5.1); Sodium 128 mmol/L (136-145)
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
[2025-01-29 15:36] LABS: Hematocrit (blood only) 30.7 % (37.0-47.0); Hemoglobin 10.0 g/dl (12.0-16.0); Immature Granulocytes # (auto) 0.06 K/uL (0.01-0.20); Immature Granulocytes % (auto) 0.7 %; Mean Corpuscular Hemoglobin 27.9 pg (25.0-34.0); Mean Corpuscular Volume 85.8 fL (80.0-100.0); Platelet Count 598 K/uL (130-400); RDW Standard Deviation 42.4 fL (36.4-46.3); Red Blood Count 3.58 M/uL (4.20-5.40); Reticulocytes # 0.050 10^6/uL (0.020-0.100); White Blood Count 9.19 K/ul (4.8-10.8)
[2025-01-29 15:53] LABS: Anion Gap 8 (3-11); Blood Urea Nitrogen 18 mg/dl (6-23); Calcium 9.1 mg/dl (8.6-10.3); Carbon Dioxide 28 mmol/L (21-32); Chloride 92 mmol/L (98-107); Glucose 117 mg/dl (70-99(Fasting)); Iron 43 mcg/dl (35-150); Potassium 4.8 mmol/L (3.5-5.1); Sodium 128 mmol/L (136-145); Total Iron Binding Cap Calc 325 mcg/dl (250-450); Transferrin 232 mg/dl (200-360); Transferrin (FE) Percent Satur 13 % (15-50)
[2025-01-29 16:13] LABS: Ferritin 148.8 ng/ml (8-388)
[2025-01-29 16:18] LABS: Folate (Folic Acid),Ser orPlas 14.59 ng/ml (>5.38)
[2025-01-29 16:19] LABS: Vitamin B12 438.0 pg/ml (180-914)
[2025-01-30 05:03] LABS: Anion Gap 8 (3-11); Blood Urea Nitrogen 17 mg/dl (6-23); Calcium 9.0 mg/dl (8.6-10.3); Carbon Dioxide 27 mmol/L (21-32); Chloride 91 mmol/L (98-107); Glucose 99 mg/dl (70-99(Fasting)); Potassium 4.2 mmol/L (3.5-5.1); Sodium 126 mmol/L (136-145)
[2025-01-30] MEDS: SODIUM CHLORIDE 1 GM TABLET PO SCH (08:24)
[2025-01-30] MEDS: ACETAMINOPHEN 325 MG TAB PO PRN (13:25)
--- NOTE | 2025-01-30 15:11 | Psychiatric Progress Note ---
Date of Service January 30, 2025 Impression / Recommendations Impression Diagnostically consistent with unspecified psychosis with broad differential including primary psychotic disorder vs substance-induced or withdrawal (UDS negative but possible she took something synthetic that would not appear on UDS or was withdrawing from use of something earlier in the week) vs secondary to underlying medical cause (presented with hyponatremia and UTI but fully oriented earlier in the day and also has been on multiple psychiatric medications including two antipsychotics which suggests a history of some type of primary psychiatric disorder). A: Ongoing significant improvement with no evidence of psychosis and denial of any current mood symptoms. Will trial abilify instead of olanzapine given ongoing concern for SIADH vs hyponatremia. Will continue to monitor and once medically stable will determine if she will need inpatient psychiatric treatment nor discharge. The patient remains hospitalized on a completed 302 involuntary commitment, which if not extended, will on 02/01/2025 @2006 . This patient must remain on safety precautions with a 1-on-1 and is unable to leave the hospital AMA. Overall, I spent a total of 50 minutes with this case including review of chart records, review of labwork, direct evaluation of the patient at bedside, counseling the patient, discussion of the patient with the Nurse and with the hospitalist provider, discussion with the psychiatric liason during clinical rounds and documentation in the electronic health record. (1) Acute psychosis: (2) UTI (urinary tract infection): Plan -Continue 1-on-1 given 302 commitment , she may not leave AMA -Discontinue olanzapine given ongoing hyponatremia -Start abilify 10mg daily, this is considered much lower risk for hyponatremia among the antipsychotic medications, she is agreeable to taking this -Suspect she will not need inpatient psychiatric treatment given ongoing resolution of psychosis but will continue to monitor -For behavioral emergency: haldol 5mg IM BID prn and ativan 2mg IM BID prn Interval History Identifying Information Richelle Mendoza is a 50yo woman from [facility] presenting from [facility] with history of PTSD, alcohol use disorder and report of agitated behavior, responding to internal stimuli, paranoia and homicidal statements escalating in recent days. Psychiatry consulted for psychosis and 302. Chief Complaint "My kids are ok, it was the worst and longest nightmare of my life". Subjective Subjective Patient was seen & assessed and interval progress reviewed. Has remained in good behavioral control. Reports sleeping well with olanzapine. Denies any medication side effects but we reviewed her ongoing hyponatremia and potential contribution from antipsychotic medications. She is agreeable to trying abilify which has a lower risk for SIADH/hyponatremia. She recalls peers having good experiences with Abilify. She reflects on how scary it was that she thought her children were killed. She's talked to them all and reflects "my kids are ok". She thinks it was from a build up of pushing down her emotions following her mom's it was "a boiling point and it hit". She notes it was the "worst and longest nightmare of my life". She's looking forward to discharge soon. She doesn't feel that inpatient psychiatric treatment is needed at this point, she looks forward to returning home and seeing her kids once medically stable. Physical Exam Psychiatric Orientation: alert and oriented x 3 Apperance: appropriately dressed and appropriately groomed Eye Contact: good eye contact Motor Behavior: no abnormal motor movements Speech: normal rate/rhythm/volume of speech Affect: euthymic affect Mood: no depressed mood and no anxious mood Thought Process: linear/logical thought process Thought Content: reality based without delusions Suicidal Thoughts: denies suicidal thoughts Homicidal Thoughts: denies homicidal thoughts Hallucinations: no auditory hallucinations and no visual hallucinations Cognition: recent memory grossly intact, remote memory grossly intact, attention grossly intact and language grossly intact Estimated Intelligence: consistent with education level Insight: + fair insight Judgment: + fair judgement Vital Signs (Past 24 Hours) Last Vital Signs Temp 36.5 C 01/30/25 07:03 Pulse 94 H 01/30/25 11:00 Resp 14 01/30/25 11:00 BP 155/95 H 01/30/25 11:00 Pulse Ox 97 01/30/25 11:00 O2 Del Method Room Air 01/30/25 10:31 Results & Data ([facility]) Laboratory Results Laboratory Results - last 24 hr 01/29/25 01/30/25 15:13 04:04 WBC 9.19 RBC 3.58 L Hgb 10.0 L Hct 30.7 L MCV 85.8 MCH 27.9 MCHC 32.6 RDW Std Deviation 42.4 RDW Coeff of Galilea 13.5 Plt Count 598 H MPV 8.8 L Immature Gran % (Auto) 0.7 Neut % (Auto) 48.9 Lymph % (Auto) 31.6 Keith % (Auto) 12.0 Eos % (Auto) 5.3 Baso % (Auto) 1.5 Reticulocyte % (Auto) 1.42 Neut # (Auto) 4.50 Lymph # (Auto) 2.90 Keith # (Auto) 1.10 H Eos # (Auto) 0.49 Baso # (Auto) 0.14 Reticulocyte # 0.050 Immature Gran # (Auto) 0.06 Sodium 128 L 126 L Potassium 4.8 4.2 Chloride 92 L 91 L Carbon Dioxide 28 27 Anion Gap 8 8 BUN 18 17 Creatinine 0.68 0.57 L Est Cr Clr Drug Dosing Not Reportable Not Reportable eGFR 107.36 112.03 BUN/Creatinine Ratio 26.5 H 29.8 H Glucose 117 H 99 Calcium 9.1 9.0 Iron 43 TIBC 325 Transferrin 232 Transferrin % Sat 13 L Ferritin 148.8 Lactate Dehydrogenase 185 Vitamin B12 438 Folate 14.59 Current Inpatient Medications Current Inpatient Medications: Current Inpatient Medications Acetaminophen (Acetaminophen 325 Mg Tab) 650 mg PO Q4H PRN PRN Reason: Pain or Fever Stop: 02/27/25 00:44 Last Admin: 01/30/25 13:25 Dose: 650 mg Diclofenac Sodium (Diclofenac Sod 1% Gel 100 Gm Tube) 2 gm EXT QID [facility]; Protocol Stop: 02/27/25 08:59 Last Admin: 01/30/25 12:50 Dose: 2 gm Divalproex Sodium (Divalproex Extended Release 500 Mg Tab) 500 mg PO HS [facility] Stop: 02/27/25 20:59 Last Admin: 01/29/25 20:23 Dose: 500 mg Divalproex Sodium (Divalproex Extended Release 250 Mg Tabcr) 250 mg PO BID [facility] Stop: 02/27/25 08:59 Last Admin: 01/30/25 08:23 Dose: 250 mg Fluticasone Furoate (For Breztri~Fluticasone Furoate 200mcg 14 Puffs/Inhaler) 1 puffs INH DAILY [facility] Stop: 02/27/25 08:59 Last Admin: 01/30/25 08:26 Dose: 1 puffs Gabapentin (Gabapentin 600 Mg Tab) 600 mg PO HS [facility] Stop: 02/27/25 20:59 Last Admin: 01/29/25 20:23 Dose: 600 mg Gabapentin (Gabapentin 400 Mg Cap) 400 mg PO BID@0900,1400 [facility] Stop: 02/27/25 08:59 Last Admin: 01/30/25 13:18 Dose: 400 mg Hydroxyzine HCl (Hydroxyzine Hcl 25 Mg Tab) 50 mg PO TID [facility] Stop: 02/27/25 08:59 Last Admin: 01/30/25 13:18 Dose: 50 mg Ceftriaxone Sodium (Rocephin) 2,000 mg in 50 mls @ 100 mls/hr IV Q24H [facility] Stop: 02/02/25 08:59 Last Infusion: 01/30/25 09:05 Dose: Infused Lidocaine (Lidocaine 5% 1 Patch) 1 patch TD DAILY PRN PRN Reason: Pain Stop: 02/27/25 00:51 Losartan Potassium (Losartan Potassium 25 Mg Tab) 25 mg PO DAILY [facility] Stop: 02/27/25 08:59 Last Admin: 01/30/25 08:26 Dose: 25 mg Miscellaneous (Remove Lidoderm Patch) 1 each N/A HS [facility] Stop: 02/27/25 20:59 Last Admin: 01/29/25 22:07 Dose: Not Given Nicotine Polacrilex (Nicotine Polacrilex 2 Mg Gum) 1 piece MT Q2H PRN PRN Reason: Patient Admitted Stop: 02/27/25 20:12 Last Admin: 01/30/25 13:18 Dose: 1 piece Olanzapine (Olanzapine 5 Mg Tablet) 15 mg PO [facility] Stop: 02/28/25 20:59 Last Admin: 01/29/25 20:43 Dose: 15 mg Ondansetron HCl (Ondansetron Inj 2 Mg/Ml 2 Ml Vial) 4 mg IV Q6H PRN PRN Reason: Nausea And Vomiting Stop: 02/27/25 00:44 Pantoprazole Sodium (Pantoprazole 40 Mg Tab) 40 mg PO BID [facility] Stop: 02/27/25 08:59 Last Admin: 01/30/25 08:25 Dose: 40 mg Prazosin HCl (Prazosin Hcl 1 Mg Cap) 1 mg PO BID@0900,1400 [facility] Stop: 02/27/25 08:59 Last Admin: 01/30/25 13:18 Dose: 1 mg Prazosin HCl (Prazosin Hcl 1 Mg Cap) 5 mg PO HS [facility] Stop: 10/17/25 20:59 Last Admin: 01/29/25 20:22 Dose: 5 mg Sodium Chloride (Sodium Chloride 1 Gm Tablet) 2 gm PO BID [facility] Stop: 03/01/25 08:59 Last Admin: 01/30/25 08:24 Dose: 2 gm Sucralfate (Sucralfate 1 Gm Tab) 1 gm PO HS [facility] Stop: 02/27/25 20:59 Last Admin: 01/29/25 20:28 Dose: 1 gm Umeclidinium/Vilanterol (For Breztri~Umeclidinium/Vilanterol 62.5/25mcg 7 Puff s/Inhaler) 1 puffs INH DAILY [facility] Stop: 02/27/25 08:59 Last Admin: 01/30/25 08:26 Dose: 1 puffs
--- NOTE | 2025-01-30 18:42 | Hospitalist Progress Note ---
Date of Service January 30, 2025 Assessment & Plan (1) Hyponatremia: (2) Psychoses: (3) UTI (urinary tract infection): (4) SIADH (syndrome of inappropriate ADH production): Plan 50yo female presenting from [facility] with report of agitated behavior, responding to internal stimuli, paranoia and homicidal statements. #Hyponatremia - Qc=334 -> 126. Suspect chronic SIADH as previously on salt tabs likely secondary to psychiatric medications (most likely Seroquel, less likely valproic acid or risperidone but probably a combination) Will change olanzapine to Abilify per psychiatry recommendations after drop overnight -Free water restriction down 1L, increase NaCl 2g PO BID -Continue to monitor Na BID #UTI Dysuria. Suspect this may have been contributing towards her psychosis Continue Ceftriaxone given suspected cause of psychosis will increase duration to 5-7 days. Urine culture with E. coli resistant to quinolones #Agitation/Psychosis/Paranoia/Homicidal Statements -Maintain 1:1 observation -Suicide precautions -Continue home medications -Continue Divalproex, level pending -Continue Gabapentin -Continue Hydroxyzine -Continue Prazosin -Continue Risperdal -Seroquel switched to Abilify for tomorrow -Appreciate psychiatry - awaiting psych placement #GERD -Continue Omeprazole and Sucralfate #Hypertension -Continue Losartan #Normocytic anemia Stable, transferrin sats 13%, ferritin 148.8, LDH 185, B12 438, folate 14.59, retic count normal VTE Prophylaxis - low risk, encourage ambulation Disposition - continue on med/surg, possible discharge tomorrow home per psychiatry Admission and Anticipated Discharge Date Admission Date: January 27, 2025 Subjective Improving daily, no current delusions Physical Exam Constitutional: WD/WN, vitals as above Respiratory: normal respiratory effort, lungs clear to auscultation Cardiovascular: RRR, no murmur, no edema Gastrointestinal (Abdomen): normal bowel sounds, soft, nontender, no hepatosplenomegaly Results & Data Results & Data Vital Signs (Past 12 Hours) Vital Signs Temp Pulse Pulse Resp BP BP Pulse Ox 01/30/25 15:37 90 01/30/25 11:00 94 H 14 155/95 H 97 01/30/25 10:31 99 H 17 146/91 H 99 01/30/25 09:00 85 17 150/75 H 95 01/30/25 07:03 36.5 C 86 18 165/94 H 98 O2 Del Method 01/30/25 15:37 01/30/25 11:00 01/30/25 10:31 Room Air 01/30/25 09:00 Room Air 01/30/25 07:03 Room Air PG Care Time/CCT Total # of Minutes Spent Total Time Spent with Patient: Total time spent is greater than 50% in coordination of care (as documented) at patient's floor/unit and/or counseling patient: Coding Level of Care Code 10438 SUB INP/OBS CARE 2/35MIN Diagnoses Hyponatremia E87.1 Psychoses F29 UTI (urinary tract infection) N39.0 SIADH (syndrome of inappropriate ADH production) E22.2
[2025-01-30 19:58] LABS: Anion Gap 9 (3-11); Blood Urea Nitrogen 17 mg/dl (6-23); Calcium 8.7 mg/dl (8.6-10.3); Carbon Dioxide 25 mmol/L (21-32); Chloride 91 mmol/L (98-107); Glucose 120 mg/dl (70-99(Fasting)); Potassium 4.3 mmol/L (3.5-5.1); Sodium 125 mmol/L (136-145)
[2025-01-30] MEDS ORDERED: STAT IV/IM STA (21:01)
[2025-01-30] MEDS: ONDANSETRON INJ 2 MG/ML 2 ML VIAL IV PRN (21:52)
[2025-01-30] MEDS: SODIUM CHLORIDE 3 % 100 ML IV ONE (21:56)
[2025-01-30] MEDS: LIDOCAINE 5% 1 PATCH TD PRN (22:11)
[2025-01-31 06:11] LABS: Anion Gap 9 (3-11); Blood Urea Nitrogen 16 mg/dl (6-23); Calcium 8.9 mg/dl (8.6-10.3); Carbon Dioxide 25 mmol/L (21-32); Chloride 93 mmol/L (98-107); Glucose 131 mg/dl (70-99(Fasting)); Potassium 4.0 mmol/L (3.5-5.1); Sodium 127 mmol/L (136-145)
[2025-01-31] MEDS ORDERED: STAT IV/IM STA ×3 (07:03→13:46)
[2025-01-31] MEDS: SODIUM CHLORIDE 3 % 100 ML IV ONE ×3 (07:25→14:21)
[2025-01-31] MEDS: ARIPIprazole 1 MG/ML ORAL SOLN 150 ML BTL PO SCH (08:23)
[2025-01-31 11:55] LABS: Anion Gap 6 (3-11); Blood Urea Nitrogen 14 mg/dl (6-23); Calcium 8.8 mg/dl (8.6-10.3); Carbon Dioxide 29 mmol/L (21-32); Chloride 93 mmol/L (98-107); Glucose 102 mg/dl (70-99(Fasting)); Potassium 4.5 mmol/L (3.5-5.1); Sodium 128 mmol/L (136-145)
--- NOTE | 2025-01-31 13:13 | Psychiatric Progress Note ---
Date of Service January 31, 2025 Impression / Recommendations Impression Diagnostically consistent with unspecified psychosis with broad differential including primary psychotic disorder vs substance-induced or withdrawal (UDS negative but possible she took something synthetic that would not appear on UDS or was withdrawing from use of something earlier in the week) vs secondary to underlying medical cause (presented with hyponatremia and UTI but fully oriented earlier in the day and also has been on multiple psychiatric medications including two antipsychotics which suggests a history of some type of primary psychiatric disorder). Will continue to monitor and once medically stable will determine if she will need inpatient psychiatric treatment nor discharge. The patient remains hospitalized on a completed 302 involuntary commitment, which if not extended, will on 02/01/2025 @2006 . This patient must remain on safety precautions with a 1-on-1 and is unable to leave the hospital AMA. Overall, I spent a total of 35 minutes with this case including review of chart records, review of labwork, direct evaluation of the patient at bedside, counseling the patient, discussion of the patient with the Nurse and with the hospitalist provider, discussion with the psychiatric liason during clinical rounds and documentation in the electronic health record. (1) Acute psychosis: (2) UTI (urinary tract infection): Plan -Continue 1-on-1 given 302 commitment , she may not leave AMA -302 expires tomorrow, and barring any acute decompensation overnight, I don't anticipate we will need to re-petition. If she remains stable, we can d/c the suicide precautions tomorrow. -No need for psychiatric inpatient treatment at this time. -Continue Abilify 10mg daily - recommend switching to the tablet as solution is unlikely to be covered by insurance after discharge. -She will need case management assistance in preparing for discharge, especially coordinating her bus ticket to home and possibly a hotel depending on time of discharge, since she has no phone. -For behavioral emergency: haldol 5mg IM BID prn and ativan 2mg IM BID prn Suicide Risk Level Suicide Risk Level: Moderate (q15 min suicide checks) Interval History Identifying Information Richelle Mendoza is a 50yo woman from [facility] presenting from [facility] with history of PTSD, alcohol use disorder and report of agitated behavior, responding to internal stimuli, paranoia and homicidal statements escalating in recent days. Psychiatry consulted for psychosis and 302. Chief Complaint "[]". Review of Systems Notes Constitutional: No Weight Change, No Fever, No Chills, No Night Sweats ENT/Mouth: No Hearing Changes, No Nasal Congestion, No sore throat, No Swallowing Difficulty Eyes: No Vision Changes Cardiovascular: No Chest Pain, No SOB, No Edema, No Palpitations Respiratory: No Cough, No Wheezing, No Dyspnea Gastrointestinal: No Nausea, No Vomiting, No Diarrhea, No Constipation Urinary: No Frequency, No Hematuria, No Urinary Incontinence, No Dysuria Musculoskeletal: No Arthralgias, No Myalgias, No Joint Stiffness, Skin: No Skin Lesions, No Pruritis, No Hair Changes, Neuro: No Weakness, No Numbness, No Paresthesias, No Dizziness, No Headache, No Coordination Changes, No Recent Falls Heme/Lymph: No Bruising, No Bleeding Endocrine: No Polyuria, No Polydipsia, No Temperature Intolerance Subjective Subjective Patient was seen & assessed and interval progress reviewed with psychiatric liaison and ED nursing staff. No report of behavioral events overnight. I met with the patient in her room, along with the psychiatric liaison. She had her first dose of Abilify this a.m., and reported no issues other than the solution she was given tasted poorly. No tremor or EPS. No GI upset. She continues to report no recurrence of paranoia or hallucinations. She reports her mood is euthymic. She does acknowledge some anxiety, primarily related to coordinating details about how she will get home and coordinate follow-up, especially with her phone currently missing and her belongings that were brought in from the rehab. She also continues to process the events leading to admission. "It felt so real". She has been able to connect with family though, and reports that they are very supportive, and talking with them helps her feel reassured. Explained that the 302 will tomorrow, and currently have no evidence to recommend a new 302, since her symptoms have resolved. She does have good awareness of her medical condition as well, and reported she is willing to stay until it is medically appropriate for discharge. She plans to take a [employer] bus home after discharge, and follow-up with her previously established providers. Physical Exam Psychiatric Orientation: alert, oriented x 3 and cooperative Apperance: appropriately dressed and appropriately groomed Eye Contact: good eye contact Motor Behavior: steady gait and station and no abnormal motor movements; no psychomotor agitation and n EPS Speech: normal rate/rhythm/volume of speech Affect: euthymic affect Full range. No lability. Mood: + anxious mood Thought Process: goal directed thought process and linear/logical thought process Thought Content: no preoccupation, no obsessions and no delusions Suicidal Thoughts: denies suicidal thoughts, denies suicidal plan and denies suicidal intent Homicidal Thoughts: denies homicidal thoughts, denies homicidal plan and denies homicidal intent Hallucinations: no auditory hallucinations and no visual hallucinations Cognition: recent memory grossly intact, remote memory grossly intact, attention grossly intact and language grossly intact Estimated Intelligence: consistent with education level Insight: good insight Judgment: good judgement Vital Signs (Past 24 Hours) Last Vital Signs Temp 37.0 C 01/30/25 19:25 Pulse 84 01/31/25 07:33 Resp 24 01/31/25 07:33 BP 146/105 H 01/31/25 08:00 Pulse Ox 98 01/31/25 07:33 O2 Del Method Room Air 01/31/25 07:33 Results & Data ([facility]) Laboratory Results Laboratory Results - last 24 hr 01/30/25 01/31/25 01/31/25 19:21 05:12 11:23 Sodium 125 L 127 L 128 L Potassium 4.3 4.0 4.5 Chloride 91 L 93 L 93 L Carbon Dioxide 25 25 29 Anion Gap 9 9 6 BUN 17 16 14 Creatinine 0.70 0.62 0.56 L Est Cr Clr Drug Dosing Not Reportable Not Reportable Not Reportable eGFR 106.62 109.78 112.51 BUN/Creatinine Ratio 24.3 H 25.8 H 25.0 H Glucose 120 H 131 H 102 H Calcium 8.7 8.9 8.8 Current Inpatient Medications Current Inpatient Medications: Current Inpatient Medications Acetaminophen (Acetaminophen 325 Mg Tab) 650 mg PO Q4H PRN PRN Reason: Pain or Fever Stop: 02/27/25 00:44 Last Admin: 01/31/25 04:40 Dose: 650 mg Aripiprazole (Aripiprazole 1 Mg/Ml Oral Soln 150 Ml Btl) 10 mg PO QAM [facility] Stop: 03/02/25 08:59 Last Admin: 01/31/25 08:23 Dose: 10 mg Diclofenac Sodium (Diclofenac Sod 1% Gel 100 Gm Tube) 2 gm EXT QID [facility]; Protocol Stop: 02/27/25 08:59 Last Admin: 01/31/25 08:24 Dose: 2 gm Divalproex Sodium (Divalproex Extended Release 500 Mg Tab) 500 mg PO HS [facility] Stop: 02/27/25 20:59 Last Admin: 01/30/25 21:37 Dose: 500 mg Divalproex Sodium (Divalproex Extended Release 250 Mg Tabcr) 250 mg PO BID [facility] Stop: 02/27/25 08:59 Last Admin: 01/31/25 08:25 Dose: 250 mg Fluticasone Furoate (For Breztri~Fluticasone Furoate 200mcg 14 Puffs/Inhaler) 1 puffs INH DAILY [facility] Stop: 02/27/25 08:59 Last Admin: 01/31/25 08:24 Dose: 1 puffs Gabapentin (Gabapentin 600 Mg Tab) 600 mg PO HS [facility] Stop: 02/27/25 20:59 Last Admin: 01/30/25 21:12 Dose: 600 mg Gabapentin (Gabapentin 400 Mg Cap) 400 mg PO BID@0900,1400 [facility] Stop: 02/27/25 08:59 Last Admin: 01/31/25 08:25 Dose: 400 mg Hydroxyzine HCl (Hydroxyzine Hcl 25 Mg Tab) 50 mg PO TID [facility] Stop: 02/27/25 08:59 Last Admin: 01/31/25 08:25 Dose: 50 mg Ceftriaxone Sodium (Rocephin) 2,000 mg in 50 mls @ 100 mls/hr IV Q24H [facility] Stop: 02/02/25 08:59 Last Infusion: 01/31/25 09:38 Dose: Infused Lidocaine (Lidocaine 5% 1 Patch) 1 patch TD DAILY PRN PRN Reason: Pain Stop: 02/27/25 00:51 Last Admin: 01/30/25 22:11 Dose: 1 patch Losartan Potassium (Losartan Potassium 25 Mg Tab) 25 mg PO DAILY [facility] Stop: 02/27/25 08:59 Last Admin: 01/31/25 08:25 Dose: 25 mg Miscellaneous (Remove Lidoderm Patch) 1 each N/A HS [facility] Stop: 02/27/25 20:59 Last Admin: 01/30/25 22:12 Dose: Not Given Nicotine Polacrilex (Nicotine Polacrilex 2 Mg Gum) 1 piece MT Q2H PRN PRN Reason: Patient Admitted Stop: 02/27/25 20:12 Last Admin: 01/30/25 21:53 Dose: 1 piece Ondansetron HCl (Ondansetron Inj 2 Mg/Ml 2 Ml Vial) 4 mg IV Q6H PRN PRN Reason: Nausea And Vomiting Stop: 02/27/25 00:44 Last Admin: 01/30/25 21:52 Dose: 4 mg Pantoprazole Sodium (Pantoprazole 40 Mg Tab) 40 mg PO BID [facility] Stop: 02/27/25 08:59 Last Admin: 01/31/25 08:25 Dose: 40 mg Prazosin HCl (Prazosin Hcl 1 Mg Cap) 1 mg PO BID@0900,1400 [facility] Stop: 02/27/25 08:59 Last Admin: 01/31/25 08:25 Dose: 1 mg Prazosin HCl (Prazosin Hcl 1 Mg Cap) 5 mg PO HS [facility] Stop: 02/27/25 20:59 Last Admin: 01/30/25 22:01 Dose: 5 mg Sodium Chloride (Sodium Chloride 1 Gm Tablet) 2 gm PO BID [facility] Stop: 03/01/25 08:59 Last Admin: 01/31/25 08:25 Dose: 2 gm Sucralfate (Sucralfate 1 Gm Tab) 1 gm PO HS [facility] Stop: 02/27/25 20:59 Last Admin: 01/30/25 21:13 Dose: 1 gm Umeclidinium/Vilanterol (For Breztri~Umeclidinium/Vilanterol 62.5/25mcg 7 Puffs/Inhaler) 1 puffs INH DAILY [facility] Stop: 02/27/25 08:59 Last Admin: 01/31/25 08:24 Dose: 1 puffs
--- NOTE | 2025-01-31 13:51 | Hospitalist Progress Note ---
Date of Service January 31, 2025 Assessment & Plan (1) Hyponatremia: (2) Psychoses: (3) UTI (urinary tract infection): (4) SIADH (syndrome of inappropriate ADH production): Plan 50yo female presenting from [facility] with report of agitated behavior, responding to internal stimuli, paranoia and homicidal statements. #SIADH - Nz=798 -> 126. Suspect chronic SIADH as previously on salt tabs likely secondary to psychiatric medications (most likely Seroquel, less likely valproic acid or risperidone but probably a combination) Continues to be difficult to increase therefore started hypertonic saline boluses so she has some degree of reserve on discharge -Continue free water restriction 1L -Not tolvaptan candidate given maintaining Na above 120 -Given significant hypertension will switch NaCl tabs to urea-Na 30g PO BID #UTI Dysuria. Suspect this may have been contributing towards her psychosis Continue Ceftriaxone given suspected cause of psychosis will increase duration to 5 days. Urine culture with E. coli resistant to quinolones #Agitation/Psychosis/Paranoia/Homicidal Statements Appreciate psychiatry consultation - improving significant, suspect she can go home tomorrow -Continue Divalproex, level pending -Continue Gabapentin -Continue Hydroxyzine -Continue Prazosin -Continue Risperdal -Seroquel switched to Abilify #GERD -Continue Omeprazole (switched to pantoprazole per hospital dormulary) and Sucralfate #Hypertension -Continue Losartan #Normocytic anemia Stable, transferrin sats 13%, ferritin 148.8, LDH 185, B12 438, folate 14.59, retic count normal VTE Prophylaxis - low risk, encourage ambulation Disposition - continue on med/surg, possible discharge tomorrow home per psychiatry Admission and Anticipated Discharge Date Admission Date: January 27, 2025 Subjective Feeling well. No acute concerns or questions. No dysuria. Physical Exam Constitutional: WD/WN, vitals as above Respiratory: normal respiratory effort; no respiratory distress Psychiatric: A+Ox3, euthymic affect Thought Process: goal directed thought process Thought Content: no delusions Results & Data Results & Data Vital Signs (Past 12 Hours) Vital Signs Pulse Pulse Resp BP BP Pulse Ox O2 Del Method 01/31/25 08:00 146/105 H 01/31/25 07:33 84 24 98 Room Air 01/31/25 07:30 16 167/97 H 98 Room Air 01/31/25 04:36 98 H 18 148/104 H 94 Room Air PG Care Time/CCT Total # of Minutes Spent Total Time Spent with Patient: Total time spent is greater than 50% in coordination of care (as documented) at patient's floor/unit and/or counseling patient: Coding Level of Care Code 81243 SUB INP/OBS CARE 2/35MIN Diagnoses Hyponatremia E87.1 Psychoses F29 UTI (urinary tract infection) N39.0 SIADH (syndrome of inappropriate ADH production) E22.2
[2025-01-31 15:02] LABS: Valproic Acid, Free <4.0 mg/L (4.8-17.3); Valproic Acid, Total 29.1 mg/L (50.0-100.0)
[2025-01-31] MEDS ORDERED: POLYETHYLENE (MIRALAX) 17 GM PACK PO PRN (15:05)
[2025-01-31 18:46] LABS: Anion Gap 6 (3-11); Blood Urea Nitrogen 13 mg/dl (6-23); Calcium 9.1 mg/dl (8.6-10.3); Carbon Dioxide 30 mmol/L (21-32); Chloride 92 mmol/L (98-107); Glucose 100 mg/dl (70-99(Fasting)); Potassium 4.0 mmol/L (3.5-5.1); Sodium 128 mmol/L (136-145)
[2025-01-31] MEDS: UREA (UREA-NA) 15 GM PACK PO SCH (21:04)
[2025-02-01 07:25] LABS: Anion Gap 8 (3-11); Blood Urea Nitrogen 13 mg/dl (6-23); Calcium 9.3 mg/dl (8.6-10.3); Carbon Dioxide 28 mmol/L (21-32); Chloride 90 mmol/L (98-107); Glucose 100 mg/dl (70-99(Fasting)); Potassium 4.5 mmol/L (3.5-5.1); Sodium 126 mmol/L (136-145)
[2025-02-01] MEDS: FUROSEMIDE 40 MG TAB PO ONE (08:57)
--- NOTE | 2025-02-01 12:46 | Nephrology Consultation ---
Date of Consultation February 01, 2025 Assessment & Plan (1) Hyponatremia: Chronic, moderate. Asymptomatic. Euvolemic. No sodium levels prior to admission available for review at this time. Serum sodium improved from 122-->128 mmol/L at an acceptable rate. Correction stalled. 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 Multiple potentially contributing medications were identified and therapy has been adjusted. Urine osmolality remained inappropriately elevated at 320 mOsm/L this AM. Richelle was placed on Urea 30 grams twice daily + furosemide 40 mg daily this AM. Document strict I/O's. Monitor serum sodium ~q 8 hours. Avoid a rate of correction >~0.5 mmol/L/hr. Avoid correction of >6-8 mmol/L in 24 hours. I have ordered serum sodium checks for 5PM and 11PM. I have ordered a renal profile for tomorrow AM. If sodium does not improve by 2 mmol/L on follow up testing, I would suggest a bolus of 150 ml 3% saline. Maintain free water restriction of 1 to 1.2 L/day. (2) Hypertension: BP elevated but acceptable. Tolerating losartan 25 mg daily well. The medication can be titrated as needed. No symptoms. (3) History of alcohol abuse: Risks of alcohol use in chronic hyponatremia were discussed today. (4) Psychoses: Improved. Abilify may contribute to hyponatremia but the risk is generally lower than other antipsychotics.. I would not advise adjusting therapy at this time. Valproic acid may also contribute to hyponatremia + SIADH. History of Present Illness Reason for Consultation: hyponatremia, SIADH Requesting Physician: Torrey Garcia MD Attending Physician: Torrey Garcia MD History of Present Illness Richelle Mendoza is a 50 year-old female with chronic hyponatremia. She presented to [facility] on January 27 with acute psychosis. She was brought to the hospital by [facility] from [facility] where she has been undergoing alcohol treatment. Richelle presented with agitation and paranoia responding to internal stimuli, delusional statements, as well as documented homicidal and suicidal concerns. She was admitted as a 302 commitment. Evaluation was notable for a UTI and hyponatremia. Serum sodium 122 mmol/L on admission. Sodium improved to 128 mmol/L with fluid restriction and oral NaCl by January 29. Unfortunately, serum sodium has been trending back down. Due to elevated BP, NaCl tablets were stopped. Several medication changes have been made as potential triggers to dysnatremia: Seroquel and risperidone and olanzapine stopped. Abilify has been started. A significant improvement in Richelle's mental health has been demonstrated. I discussed the patient with Dr. Garcia today. Serum sodium stalled at ~126-128 mmol/L. Richelle remains on a free water restriction of 1 L/day. She has been started on Urea 30 grams BID and furosemide 40 mg daily this AM. Urine osmolality documented at 324 mOsm/kg this AM. Richelle states that she has had low sodium levels in the past. She was placed on salt pills approximately 2 years ago for low sodium. The medication was stopped after several months. She does not know the cause of low sodium at the time. She has not seen a sociology instructor in the past. Richelle denies fluid retention or edema. Appetite is good. She is not experiencing any concerning GI symptoms. She remains on losartan 25 mg daily for hypertension. She is also maintained on prazosin TID. BP has been reasonably acceptable. She reports mild lighthe adedness. TSH documented at 3.5. Allergies Allergy/AdvReac Type Severity Reaction Status Date / Time No Known Allergies Allergy Unverified 01/28/25 00:48 Home Medications Medication Instructions Recorded Confirmed Type budesonide 160 mcg-glycopyr 9 2 inh inhalation BID 01/27/25 01/27/25 History mcg-formot 4.8 mcg/actuation HFA inhaler (Breztri Aerosphere) diclofenac sodium 1 % topical gel 2 g topical QID 01/27/25 01/27/25 History divalproex 250 mg tablet,extended 250 mg PO BID 01/27/25 01/27/25 History release 24 hr divalproex 500 mg tablet,extended 500 mg PO HS 01/27/25 01/27/25 History release 24 hr ferrous sulfate 325 mg (65 mg 325 mg PO DAILY 01/27/25 01/27/25 History iron) tablet (FeroSul) gabapentin 400 mg capsule 400 mg PO BID 01/27/25 01/27/25 History gabapentin 600 mg tablet 600 mg PO HS 01/27/25 01/27/25 History hydroxyzine HCl 50 mg tablet 50 mg PO TID 01/27/25 01/27/25 History lidocaine 4 % topical patch 1 patch topical DAILY PRN Pain 01/27/25 01/27/25 History losartan 25 mg tablet 25 mg PO DAILY 01/27/25 01/27/25 History omeprazole 40 mg capsule,delayed 40 mg PO BID 01/27/25 01/27/25 History release prazosin 1 mg capsule 1 mg PO BID 01/27/25 01/27/25 History prazosin 5 mg capsule 5 mg PO HS 01/27/25 01/27/25 History quetiapine 300 mg tablet (Seroquel) 150 mg PO HS 01/27/25 01/27/25 History risperidone 2 mg tablet (Risperdal) 2 mg PO DAILY 01/27/25 01/27/25 History sucralfate 1 gram tablet 1 g PO HS 01/27/25 01/27/25 History furosemide 40 mg tablet (Lasix) 40 mg PO DAILY #30 tabs 02/01/25 Rx Patient History Medical History History of alcohol abuse GERD (gastroesophageal reflux disease) Hypertension Asthma with COPD PTSD (post-traumatic stress disorder) Surgical History History of left knee surgery Social History Smoking Status: Unknown if ever smoked Tobacco Type: Cigarettes Hx Alcohol Use: Yes Hx Substance Use: Yes Last Used Substance: Unknown Preferred Language: Libyan [employer] Line Up Person Required: No Beliefs That Will Affect Care: None Feels Safe at Home: Yes Review of Systems Review of Systems: All systems reviewed & are unremarkable except as noted in HPI & below Physical Exam Constitutional: well developed; no acute distress Eyes: + anicteric sclerae; no conjunctival abn ormality ENMT: Mouth: no oral mucosal abnormality and oral mucous membranes not dry Neck: normal visual inspection and trachea midline Respiratory: normal respiratory effort Auscultation: lungs clear to auscultation bilaterally Cardiovascular: Rate/Rhythm: regular rate Heart Sounds: normal S1 and normal S2 Extremities: no edema Musculoskeletal: Extremities: no cyanosis and no clubbing Skin: normal turgor; no jaundice Neurologic: Motor/Sensory: no tremor and no asterixis Psychiatric: Orientation: alert and oriented x 3 Results & Data Vital Signs (Past 12 Hours) Vital Signs Temp Pulse Resp BP Pulse Ox O2 Del Method 02/01/25 08:00 36.4 C L 91 H 16 156/93 H 100 Room Air Laboratory Results Laboratory Results - last 24 hr 01/28/25 01/31/25 02/01/25 00:06 18:05 06:25 Sodium 128 L 126 L Potassium 4.0 4.5 Chloride 92 L 90 L Carbon Dioxide 30 28 Anion Gap 6 8 BUN 13 13 Creatinine 0.66 0.62 Est Cr Clr Drug Dosing Not Reportable Not Reportable eGFR 108.14 109.78 BUN/Creatinine Ratio 19.7 21.0 H Glucose 100 H 100 H Calcium 9.1 9.3 Urine Osmolality Urine Sodium Urine Potassium Urine Chloride Free Valproic Acid <4.0 L Total Valproic Acid 29.1 L 02/01/25 Unknown Sodium Potassium Chloride Carbon Dioxide Anion Gap BUN Creatinine Est Cr Clr Drug Dosing eGFR BUN/Creatinine Ratio Glucose Calcium Urine Osmolality 323 L Urine Sodium 95 Urine Potassium 34.2 Urine Chloride 129 Free Valproic Acid Total Valproic Acid PG Care Time/CCT Total # of Minutes Spent Total Time Spent with Patient: Total time spent is greater than 50% in coordination of care (as documented) at patient's floor/unit and/or counseling patient: Coding Level of Care Code 23414 IN/OBS CONSULT LVL 4,60M Diagnoses Hyponatremia E87.1 Hypertension I10 History of alcohol abuse F10.11 Psychoses F29
--- NOTE | 2025-02-01 12:47 | Hospitalist Progress Note ---
Date of Service February 01, 2025 Assessment & Plan (1) Hyponatremia: (2) Psychoses: (3) UTI (urinary tract infection): (4) SIADH (syndrome of inappropriate ADH production): Plan 50yo female presenting from [facility] with report of agitated behavior, responding to internal stimuli, paranoia and homicidal statements. #SIADH - Kl=023 -> 126. Suspect chronic SIADH as previously on salt tabs likely secondary to psychiatric medications (most likely Seroquel, less likely valproic acid or risperidone but probably a combination) Continues to be stable around 125 despite NaCl and fluid restriction and now total 400ml hypertonic saline, will add lasix 40mg PO daily today, switched to urea-Na yesterday due to hypertension -Continue free water restriction 1L -Avoiding tolvaptan as maintaining Na above 120 -Consult nephrology I am struggling to maintain adequate Na concentration #UTI Dysuria. Suspect this was causing her psychosis with underlying schizophrenia and significant improvement with antibiotics E. coli, ceftriaxone 5 day course completed #Agitation/Psychosis/Paranoia/Homicidal Statements Appreciate psychiatry consultation - improving significant, suspect she can go home tomorrow -Continue Divalproex, level pending -Continue Gabapentin -Continue Hydroxyzine -Continue Prazosin -Continue Risperdal -Seroquel switched to Abilify #GERD -Continue Omeprazole (switched to pantoprazole per hospital formulary) and Sucralfate #Hypertension -Continue Losartan #Normocytic anemia Stable, transferrin sats 13%, ferritin 148.8, LDH 185, B12 438, folate 14.59, retic count normal VTE Prophylaxis - low risk, encourage ambulation Disposition - continue on med/surg, no longer on 302 but awaiting nephrology recommendations regarding sodium count and patient willing to stay for this Admission and Anticipated Discharge Date Admission Date: January 27, 2025 Subjective Feeling well. No acute concerns or questions. No dysuria. Physical Exam Constitutional: WD/WN, vitals as above Gastrointestinal (Abdomen): normal bowel sounds, soft, nontender, no hepatosplenomegaly Psychiatric: A+Ox3, euthymic affect Thought Process: goal directed thought process Thought Content: no delusions Results & Data Results & Data Vital Signs (Past 12 Hours) Vital Signs Temp Pulse Resp BP Pulse Ox O2 Del Method 02/01/25 08:00 36.4 C L 91 H 16 156/93 H 100 Room Air PG Care Time/CCT Total # of Minutes Spent Total Time Spent with Patient: Total time spent is greater than 50% in coordination of care (as documented) at patient's floor/unit and/or counseling patient: Coding Level of Care Code 45034 SUB INP/OBS CARE 2/35MIN Diagnoses Hyponatremia E87.1 Psychoses F29 UTI (urinary tract infection) N39.0 SIADH (syndrome of inappropriate ADH production) E22.2
--- NOTE | 2025-02-01 15:04 | Psychiatric Progress Note ---
Date of Service February 01, 2025 Impression / Recommendations Impression Diagnostically consistent with unspecified psychosis with broad differential including primary psychotic disorder vs substance-induced or withdrawal (UDS negative but possible she took something synthetic that would not appear on UDS or was withdrawing from use of something earlier in the week) vs secondary to underlying medical cause (presented with hyponatremia and UTI but fully oriented earlier in the day and also has been on multiple psychiatric medications including two antipsychotics which suggests a history of some type of primary psychiatric disorder). Overall, I spent a total of 35 minutes with this case including review of chart records, review of labwork, direct evaluation of the patient at bedside, counseling the patient, discussion of the patient with the Nurse and with the hospitalist provider, discussion with the psychiatric liason during clinical rounds and documentation in the electronic health record. (1) Acute psychosis: (2) UTI (urinary tract infection): Plan The 302 commitment has today, and so there is no psychiatric hold. She also remains stable with current medication regimen, and so there is no need to repetition for 302 at this point. No one-to-one needed. Once medically stable she can be discharged as appropriate. Continue Abilify 10mg daily. Our Liaison was able to locate patient's phone, but she may still need case management's help in coordinating post-discharge plan. Suicide Risk Level Suicide Risk Level: Moderate (q15 min suicide checks) Risk Factors Assessment Male: No : Yes Health Problems: Yes Mental Health Diagnoses: Yes Substance Use Disorders: Yes Previous Attempt: No Interval History Identifying Information Richelle Mendoza is a 50yo woman from [facility] presenting from [facility] with history of PTSD, alcohol use disorder and report of agitated behavior, responding to internal stimuli, paranoia and homicidal statements escalating in recent days. Psychiatry consulted for psychosis and 302. Chief Complaint "[]". Subjective Subjective Patient was seen & assessed and interval progress reviewed with Liaison. Sodium did increase to 128 yesterday, but is back down to 126 today. There is a pending consult order for nephrology, as well. Patient was seen in her room along with the liaison. She continues to report a stable mood with some anxiety specifically related to her health concerns, and the details of getting back home. She denies panic attacks. No further paranoia. No auditory or visual hallucinations. She remains future oriented, and discussed her plans for getting back home appropriately. She is still willing to stay for any further medical stabilization that she needs. She plans to follow-up with her providers back home upon discharge. Physical Exam Psychiatric Orientation: alert, oriented x 3 and cooperative Apperance: appropriately dressed and appropriately groomed Eye Contact: good eye contact Motor Behavior: steady gait and station and no abnormal motor movements; no psychomotor agitation, no psychomotor retardation, n EPS and n akathisia Speech: normal rate/rhythm/volume of speech Affect: euthymic affect full range, no lability Mood: + anxious mood mild anxiety only. Thought Process: goal directed thought process, linear/logical thought process and clear/coherent thought process Thought Content: no preoccupation, no obsessions and no delusions Suicidal Thoughts: denies suicidal thoughts, denies suicidal plan and denies suicidal intent Homicidal Thoughts: denies homicidal thoughts, denies homicidal plan and denies homicidal intent Hallucinations: no auditory hallucinations and no visual hallucinations Cognition: recent memory grossly intact, remote memory grossly intact, attention grossly intact and language grossly intact Estimated Intelligence: consistent with education level Insight: good insight Judgment: good judgement Vital Signs (Past 24 Hours) Last Vital Signs Temp 36.6 C 02/01/25 14:40 Pulse 101 H 02/01/25 14:40 Resp 16 02/01/25 14:40 BP 145/90 H 02/01/25 14:40 Pulse Ox 98 02/01/25 14:40 O2 Del Method Room Air 02/01/25 14:40 Results & Data ([facility]) Laboratory Results Laboratory Results - last 24 hr 01/28/25 01/31/25 02/01/25 00:06 18:05 06:25 Sodium 128 L 126 L Potassium 4.0 4.5 Chloride 92 L 90 L Carbon Dioxide 30 28 Anion Gap 6 8 BUN 13 13 Creatinine 0.66 0.62 Est Cr Clr Drug Dosing Not Reportable Not Reportable eGFR 108.14 109.78 BUN/Creatinine Ratio 19.7 21.0 H Glucose 100 H 100 H Calcium 9.1 9.3 Urine Osmolality Urine Sodium Urine Potassium Urine Chloride Free Valproic Acid <4.0 L Total Valproic Acid 29.1 L 02/01/25 Unknown Sodium Potassium Chloride Carbon Dioxide Anion Gap BUN Creatinine Est Cr Clr Drug Dosing eGFR BUN/Creatinine Ratio Glucose Calcium Urine Osmolality 323 L Urine Sodium 95 Urine Potassium 34.2 Urine Chloride 129 Free Valproic Acid Total Valproic Acid Current Inpatient Medications Current Inpatient Medications: Current Inpatient Medications Acetaminophen (Acetaminophen 325 Mg Tab) 650 mg PO Q4H PRN PRN Reason: Pain or Fever Stop: 02/27/25 00:44 Last Admin: 02/01/25 08:32 Dose: 650 mg Aripiprazole (Aripiprazole 10 Mg Tab) 10 mg PO QAM [facility] Stop: 03/03/25 08:59 Last Admin: 02/01/25 08:11 Dose: 10 mg Diclofenac Sodium (Diclofenac Sod 1% Gel 100 Gm Tube) 2 gm EXT QID MANJIT; Protocol Stop: 02/27/25 08:59 Last Admin: 02/01/25 08:05 Dose: 2 gm Divalproex Sodium (Divalproex Extended Release 500 Mg Tab) 500 mg PO [facility] Stop: 02/27/25 20:59 Last Admin: 01/31/25 20:54 Dose: 500 mg Divalproex Sodium (Divalproex Extended Release 250 Mg Tabcr) 250 mg PO BID [facility] Stop: 02/27/25 08:59 Last Admin: 02/01/25 08:14 Dose: 250 mg Fluticasone Furoate (For Breztri~Fluticasone Furoate 200mcg 14 Puffs/Inhaler) 1 puffs INH DAILY [facility] Stop: 02/27/25 08:59 Last Admin: 02/01/25 08:10 Dose: 1 puffs Furosemide (Furosemide 40 Mg Tab) 40 mg PO QAM [facility] Stop: 03/04/25 08:59 Gabapentin (Gabapentin 600 Mg Tab) 600 mg PO HS [facility] Stop: 02/27/25 20:59 Last Admin: 01/31/25 20:54 Dose: 600 mg Gabapentin (Gabapentin 400 Mg Cap) 400 mg PO BID@0900,1400 [facility] Stop: 02/27/25 08:59 Last Admin: 02/01/25 08:05 Dose: 400 mg Hydroxyzine HCl (Hydroxyzine Hcl 25 Mg Tab) 50 mg PO TID [facility] Stop: 02/27/25 08:59 Last Admin: 02/01/25 08:06 Dose: 50 mg Lidocaine (Lidocaine 5% 1 Patch) 1 patch TD DAILY PRN PRN Reason: Pain Stop: 02/27/25 00:51 Last Admin: 02/01/25 08:57 Dose: 1 patch Losartan Potassium (Losartan Potassium 25 Mg Tab) 25 mg PO DAILY [facility] Stop: 02/27/25 08:59 Last Admin: 02/01/25 08:06 Dose: 25 mg Miscellaneous (Remove Lidoderm Patch) 1 each N/A [facility] Stop: 02/27/25 20:59 Last Admin: 01/31/25 20:55 Dose: Not Given Nicotine Polacrilex (Nicotine Polacrilex 2 Mg Gum) 1 piece MT Q2H PRN PRN Reason: Patient Admitted Stop: 02/27/25 20:12 Last Admin: 01/31/25 18:37 Dose: 1 piece Ondansetron HCl (Ondansetron Inj 2 Mg/Ml 2 Ml Vial) 4 mg IV Q6H PRN PRN Reason: Nausea And Vomiting Stop: 02/27/25 00:44 Last Admin: 01/31/25 21:00 Dose: 4 mg Pantoprazole Sodium (Pantoprazole 40 Mg Tab) 40 mg PO BID [facility] Stop: 02/27/25 08:59 Last Admin: 02/01/25 08:07 Dose: 40 mg Polyethylene Glycol (Polyethylene (Miralax) 17 Gm Pack) 17 gm PO DAILY PRN PRN Reason: Constipation Stop: 03/02/25 15:04 Prazosin HCl (Prazosin Hcl 1 Mg Cap) 1 mg PO BID@0900,1400 [facility] Stop: 02/27/25 08:59 Last Admin: 02/01/25 08:05 Dose: 1 mg Prazosin HCl (Prazosin Hcl 1 Mg Cap) 5 mg PO [facility] Stop: 02/27/25 20:59 Last Admin: 01/31/25 19:00 Dose: 5 mg Sucralfate (Sucralfate 1 Gm Tab) 1 gm PO HS [facility] Stop: 02/27/25 20:59 Last Admin: 01/31/25 20:54 Dose: 1 gm Umeclidinium/Vilanterol (For Breztri~Umeclidinium/Vilanterol 62.5/25mcg 7 Puffs/Inhaler) 1 puffs INH DAILY [facility] Stop: 02/27/25 08:59 Last Admin: 02/01/25 08:12 Dose: 1 puffs Urea (Urea (Urea-Na) 15 Gm Pack) 30 gm PO BID MANJIT Stop: 03/02/25 20:59 Last Admin: 02/01/25 08:17 Dose: Not Given
[2025-02-01] MEDS ORDERED: STAT IV/IM STA (17:29)
[2025-02-01] MEDS: SODIUM CHLORIDE 3 % 150 ML IV ONE (18:18)
[2025-02-02 07:21] LABS: Anion Gap 5.0 (3-11); Blood Urea Nitrogen 37.0 mg/dl (6-23); Calcium 9.6 mg/dl (8.6-10.3); Carbon Dioxide 32.0 mmol/L (21-32); Chloride 93.0 mmol/L (98-107); Creatinine Clr Calc Pharmacy 87.4 ml/min; Glucose 119.0 mg/dl (70-99(Fasting)); Potassium 4.2 mmol/L (3.5-5.1); Sodium 130.0 mmol/L (136-145)
[2025-02-02] MEDS: FUROSEMIDE 40 MG TAB PO SCH (08:35)
[2025-02-02] MEDS: SODIUM CHLORIDE 1 GM TABLET PO SCH (10:08)
--- NOTE | 2025-02-02 10:29 | Nephrology Progress Note ---
Date of Service February 02, 2025 Assessment & Plan (1) Hyponatremia: Plan: Chronic, moderate. Asymptomatic. Euvolemic. Sodium improved at acceptable rate. Richelle was placed on Urea 30 grams twice daily + furosemide 40 mg daily yesterday. I would continue this therapy in addition to 1 gram of NaCl on discharge. Richelle was advised to monitor labs closely with follow up within a few days of discharge. I have placed orders for repeat sodium at 1PM. Maintain free water restriction of 1 to 1.2 L/day. (2) Hypertension: Plan: BP acceptable. Tolerating losartan 25 mg daily well. Tolerating daily furosemide. (3) History of alcohol abuse: Plan: Risks of alcohol use in chronic hyponatremia have been discussed. (4) Psychoses: Plan: Improved. Abilify may contribute to hyponatremia but the risk is generally lower than other antipsychotics.. I would not advise adjusting therapy at this time. Valproic acid may also contribute to hyponatremia + SIADH. Admission and Anticipated Discharge Date Admission Date: January 27, 2025 Subjective No acute events overnight. Richelle feels well this AM. She would like to go home. A family member is driving to [place] today to provide transportation back to [place]. Richelle denies fluid retention or edema. Appetite is good. She is breathing comfortably. She denies lightheadedness or dizziness. Review of Systems Review of Systems: All systems reviewed & are unremarkable except as noted in HPI & below Physical Exam Constitutional: well developed; no acute distress Eyes: + anicteric sclerae; no conjunctival abn ormality ENMT: Mouth: no oral mucosal abnormality and oral mucous membranes not dry Neck: normal visual inspection and trachea midline Respiratory: normal respiratory effort Auscultation: lungs clear to auscultation bilaterally Cardiovascular: Rate/Rhythm: regular rate Heart Sounds: normal S1 and normal S2 Extremities: no edema Musculoskeletal: Extremities: no cyanosis and no clubbing Skin: normal turgor; no jaundice Neurologic: Motor/Sensory: no tremor and no asterixis Psychiatric: Orientation: alert and oriented x 3 Results & Data Vital Signs (Past 12 Hours) Vital Signs Temp Pulse Resp BP BP Pulse Ox O2 Del Method 02/02/25 08:30 127/77 02/02/25 07:53 36.6 C 95 H 16 145/92 H 96 Room Air 02/01/25 23:20 36.8 C 77 16 164/88 H 99 Room Air Laboratory Results Laboratory Results - last 24 hr 02/01/25 02/01/25 02/01/25 16:33 23:18 Unknown Sodium 126 L 128 L Potassium Chloride Carbon Dioxide Anion Gap BUN Creatinine Est Cr Clr Drug Dosing eGFR BUN/Creatinine Ratio Glucose Calcium Phosphorus Albumin Urine Osmolality 323 L Urine Sodium 95 Urine Potassium 34.2 Urine Chloride 129 02/02/25 02/02/25 06:16 07:40 Sodium 130 L Potassium 4.2 Chloride 93 L Carbon Dioxide 32 Anion Gap 5 BUN 37 H D Creatinine 0.68 Est Cr Clr Drug Dosing 87.4 eGFR 107.36 BUN/Creatinine Ratio 54.4 H Glucose 119 H Calcium 9.6 Phosphorus 5.9 H Albumin 3.8 Urine Osmolality 503 Urine Sodium Urine Potassium Urine Chloride PG Care Time/CCT Total # of Minutes Spent Total Time Spent with Patient: Total time spent is greater than 50% in coordination of care (as documented) at patient's floor/unit and/or counseling patient: Coding Level of Care Code 77145 SUB INP/OBS CARE 3/50MIN Diagnoses Hyponatremia E87.1 Hypertension I10 History of alcohol abuse F10.11 Psychoses F29
--- NOTE | 2025-02-02 10:51 | Discharge Summary ---
Discharge Summary Date of Service February 02, 2025 Principal Dx & Hospital Course #1 = Principal Diagnosis (1) Hyponatremia: (2) Psychoses: (3) UTI (urinary tract infection): (4) SIADH (syndrome of inappropriate ADH production): Plan 50yo female presenting from [facility] with report of agitated behavior, responding to internal stimuli, paranoia and homicidal statements. #SIADH - Gc=815 -> 126. Suspect chronic SIADH as previously on salt tabs likely secondary to psychiatric medications (most likely Seroquel, less likely valproic acid or risperidone but probably a combination) Continues to be stable around 125 despite NaCl and fluid restriction and now total 400ml hypertonic saline, will add lasix 40mg PO daily today, switched to urea-Na yesterday due to hypertension -Continue free water restriction 1L -Avoiding tolvaptan as maintaining Na above 120 -Consult nephrology I am struggling to maintain adequate Na concentration #UTI Dysuria. Suspect this was causing her psychosis with underlying schizophrenia and significant improvement with antibiotics E. coli, ceftriaxone 5 day course completed #Agitation/Psychosis/Paranoia/Homicidal Statements Appreciate psychiatry consultation - improving significant, suspect she can go home tomorrow -Continue Divalproex, level pending -Continue Gabapentin -Continue Hydroxyzine -Continue Prazosin -Continue Risperdal -Seroquel switched to Abilify #GERD -Continue Omeprazole (switched to pantoprazole per hospital formulary) and Sucralfate #Hypertension -Continue Losartan #Normocytic anemia Stable, transferrin sats 13%, ferritin 148.8, LDH 185, B12 438, folate 14.59, retic count normal VTE Prophylaxis - low risk, encourage ambulation Disposition - continue on med/surg, no longer on 302 but awaiting nephrology recommendations regarding sodium count and patient willing to stay for this Admission HPI Per Admitting Provider Richelle Mendoza is a 50yo female presenting from [facility] as a 302 admission. Patient was recently given Ativan and is somnolent during exam. Is able to answer questions but does not engage fully with providing history or exam. Patient has been at [facility] for the last month for treatment of alcohol use disorder. She was to be discharged today from [facility]. Patient was making comments to [facility] staff that "she was going to kill everyone and rip their heads off". She was noted to have auditory and visual hallucinations. She thinks that her son was attacked in [place] and is now either or is in the hospital. During my encounter patient with no complaints except a mild headache. In the ER she was initially agitated on arrival but calmed down after PO Ativan ER Course: Ativan 2mg PO NSS x 500mL Discharge Plan Discharge Items Patient Disposition: Home - Self-Care Reason For Visit: HYPONATREMIA Discharge Diagnosis: UTI causing psychosis Hyponatremia due to syndrome of inappropriate antidiuretic hormone (SIADH due to antipsychotics) Condition on Discharge: Good Activity: Resume your previous activity Non-emergency contact: Primary Care Provider and Psychiatrist Call non-emergency contact if: you have any medication questions and your sym ptoms worsen Follow-up/Referrals: [facility] [Other] - 02/11/25 10:30 am Bry Ronquillo [Primary Care Provider] - Diet: Regular Addtl Attending Provider Instructions: You were admitted to [facility] from January 27 - 2024 due to psychosis. You were diagnosed with UTI and treated with ceftriaxone (finished antibiotics as inpatient and no further antibiotics required on discharge). You antipsychotics (risperidone and Seroquel) were switched to Abilify to help with low sodium concentration from SIADH. You were treated for SIADH with salt tabs, hypertonic saline and lasix and now 130 on discharge. Please follow up with your primary care physician for ongoing management of this. Pending Studies at Discharge: No Stand-Alone Forms: My [facility], Smoking Cessation Medications and DC Order Prescriptions: New furosemide [Lasix] 40 mg tablet 40 mg PO DAILY Qty: 30 0RF aripiprazole [Abilify] 10 mg Tablet 10 mg PO QAM Qty: 30 0RF sodium chloride 1,000 mg Tablet,Soluble 1,000 mg PO DAILY Qty: 30 0RF Continued gabapentin 600 mg Tablet 600 mg PO HS lidocaine 4 % Adhesive Patch,Medicated 1 patch TOPICAL DAILY PRN (Reason: Pain) prazosin 1 mg Capsule 1 mg PO BID gabapentin 400 mg Capsule 400 mg PO BID omeprazole 40 mg Capsule,Delayed Release(Dr/Ec) 40 mg PO BID prazosin 5 mg Capsule 5 mg PO HS ferrous sulfate [FeroSul] 325 mg (65 mg iron) Tablet 325 mg PO DAILY divalproex 500 mg Tablet Extended Release 24 Hr 500 mg PO HS losartan 25 mg Tablet 25 mg PO DAILY divalproex 250 mg Tablet Extended Release 24 Hr 250 mg PO BID Breztri Aerosphere 160-9-4.8 mcg/actuation Hfa Aerosol Inhaler 2 inh INHALATION BID sucralfate 1 gram Tablet 1 g PO HS diclofenac sodium 1 % Gel 2 g TOPICAL QID Rx Instructions: apply to single elbow, wrist or hand; for hand includes palm/fingers/back of hand Changed hydroxyzine HCl 50 mg Tablet 50 mg PO TID PRN (Reason: Anxiety) Qty: 0 0RF Discontinued quetiapine [Seroquel] 300 mg Tablet 150 mg PO HS risperidone [Risperdal] 2 mg Tablet 2 mg PO DAILY Discharge Orders: Discharge Order (Routine); Ordered 02/02/25 Ordered By: Torrey Garcia Admission Data Admit Date/Time: 01/27/25 23:55 Attending Provider: Torrey Garcia Admit Provider: Munira Hughes Primary Care Provider: Bry Ronquillo Other Providers: Jeanette Mojica; Reynaldo Walters; Mila Alfred; Milagros Sharpe; Ralph Goel; Elvia Ruiz; Edgar Romero; Ashley Abreu; Munira Hughes; [facility] Stay Data Consultations 01/27/25 23:55 ED Decision to Admit Stat 01/27/25 23:55 Consult Psychiatry Routine 02/01/25 09:51 Consult Nephrology Routine Diagnostic Imagining Performed 01/27/25 21:56 CT head/brain wo con Stat Pending Results Patient Have Any Pending Studies at Discharge: No Discharge Instructions Given to Patient (Per Discharging Provider) You were admitted to [facility] from January 27 - 2024 due to psychosis. You were diagnosed with UTI and treated with ceftriaxone (finished antibiotics as inpatient and no further antibiotics required on discharge). You antipsychotics (risperidone and Seroquel) were switched to Abilify to help with low sodium concentration from SIADH. You were treated for SIADH with salt tabs, hypertonic saline and lasix and now 130 on discharge. Please follow up with your primary care physician for ongoing management of this. Coding Diagnoses Hyponatremia E87.1 Psychoses F29 UTI (urinary tract infection) N39.0 SIADH (syndrome of inappropriate ADH production) E22.2
== END 2025-02-02 16:10 | disposition home or self-care (01) | DRG 885 ==
LOC: ED 19:38 → EDINP 23:55 → SUATTDRO 23:55 → 3W 01-28 00:45